=== PATIENT | male | born 1940 | race Hispanic/Latino ===

== ENCOUNTER 2024-01-11 13:12 | Inpatient (IN) | payer MEDICARE, SELFPAY ==
[2024-01-11] VITALS (7 sets, daily range): BP systolic 131–157; BP diastolic 66–94; PULSE 78–99; RESP 15–22; TEMP 36.4–36.6; O2SAT 100
--- NOTE | ~2024-01-11 | MR_ITS ---
EXAMINATION: MR MRCP wo/w con/w 3D wo ind DATE: 01/13/2024 08:42 INDICATION: Abnormal liver function tests. Cholelithiasis. TECHNIQUE: Magnetic resonance imaging (MRI) of the abdomen was performed without and with 12 mL Multi Lisa intravenous contrast. Sequences included coronal T2-weighted FS FSE, coronal T2-weighted FSE, a xial T1-weighted LAVA, coronal FS FIESTA, axial dual-echo T1-weighted SPGR, coronal lava-FLEX, sagitt al T2-weighted FSE, axial T2-weighted FSE, and axial DWI. Thick-slab T2-weighted FSE images were obta ined for magnetic resonance cholangiopancreatography (MRCP). Maximum intensity projection 3-D reconst ructions of the volumetric data were created by the technologist. Postcontrast sequences included cor onal LAVA-flex and time course of axial T1-weighted LAVA. COMPARISON: CT abdomen and pelvis 01/11/2024 FINDINGS: ABDOMEN MRI: There is diffuse hepatic steatosis. There are cysts in the liver measuring up to 4 mm. T here are gallstones in the gallbladder, which is normal in size. The spleen, pancreas, adrenal glands , and right kidney are normal. There is a 13 mm cyst in left kidney. There are no dilated loops of jim wel. There is diverticulosis of the colon without evidence of diverticulitis. There are no pathologic ally enlarged lymph nodes. There is no free intraperitoneal fluid. ABDOMEN MRCP: The common duct is normal and measures 5 mm. No choledocholithiasis. IMPRESSION: 1. Diffuse hepatic steatosis. 2. Cholelithiasis. No evidence of acute cholecystitis. Reviewed, dictated and finalized at location A.
--- NOTE | ~2024-01-11 | CT_ITS ---
EXAMINATION: CT brain wo con DATE: 01/11/2024 17:05 INDICATION: Altered mental status TECHNIQUE: Computed tomography (CT) of the head was performed without intravenous contrast. Sagittal and coronal reconstructions were performed. The mA was adjusted according to patient size. Iterative reconstruction technique was employed. The dose-length product was 680.23 mGy-cm. COMPARISON: None FINDINGS: No acute intracranial hemorrhage, acute infarction or abnormal extra axial fluid collection. Ventricl es are normal and symmetric. No mass/mass effect. Symmetric prominence of the sulci consistent with m ild to moderate age-appropriate diffuse cerebral volume loss. The orbits and mastoid air cells are no rmal. Mild mucosal thickening versus dependent layering mucus in the right sphenoid sinus. IMPRESSION: 1. Age-appropriate mild to moderate diffuse brain volume loss. No acute intracranial process. Reviewed, dictated and finalized at location A. IMPRESSION: 1. Age-appropriate mild to moderate diffuse brain volume loss. No acute intracr anial process.
--- NOTE | ~2024-01-11 | CT_ITS ---
EXAMINATION: CT abdomen pelvis w con DATE: 01/11/2024 17:04 INDICATION: Nausea, vomiting and diarrhea. Abnormal liver function tests and lipase levels. TECHNIQUE: Computed tomography (CT) of the abdomen and pelvis was performed with 100 mL Omnipaque-350 intravenous contrast. Automated exposure control and iterative reconstruction technique were employe d. The dose-length product was 680.23 mGy-cm. COMPARISON: None FINDINGS: Lung bases are clear. Heart size is normal. Aortic valve calcification. No pericardial effusion. Diff use hepatic steatosis. Several low-attenuation gallstones within the normal-appearing gallbladder. No intra or extrahepatic biliary ductal dilation. Spleen, pancreas, bilateral adrenal glands and right kidney are normal. 1.3 cm cyst at the upper pole of the left kidney. Extensive colonic diverticulosis with sigmoid and descending colon predominance without adjacent from trace stranding to suggest dive rticulitis. Bladder is normal. Prostatomegaly. Bilateral fat-containing direct inguinal hernias with additional small fat-containing indirect right inguinal hernia. Tiny fat-containing umbilical hernia. No free intraperitoneal gas or fluid. No pathologically enlarged abdominal or pelvic lymphadenopathy . Severe lumbar spondylosis. IMPRESSION: 1. No acute intra-abdominal/pelvic process. 2. Cholelithiasis. 3. Extensive diverticulosis. 4. Prostatomegaly. 5. Bilateral fat-containing inguinal hernias and tiny fat-containing umbilical hernia. Reviewed, dictated and finalized at location A.
--- NOTE | ~2024-01-11 | US_ITS ---
EXAMINATION: US abdomen limited DATE: 01/11/2024 17:40 INDICATION: Abnormal liver function tests, lipase and elevated bilirubin. TECHNIQUE: Multiple grayscale and Doppler ultrasound images of the abdomen were obtained. COMPARISON: CT dated 01/11/24 FINDINGS: The pancreatic head and body are normal in appearance. The pancreatic tail is not visualized. Liver has normal contour, with a smooth surface. There is increased parenchymal echogenicity and coarsened echotexture consistent with diffuse hepatic steatosis. No liver lesion identified. No intrahepatic b iliary duct dilation suspected. Portal venous flow was seen in the hepatopetal, normal direction and has normal Doppler waveform. The visualized proximal inferior vena cava is normal. There are few echo genic and shadowing gallstones filling the incompletely distended gallbladder. No evident gallbladder wall thickening. Common bile duct measures 304 mm in maximal diameter which is normal. Sonographic M urphy sign was reported as negative by the food service technician. Visualized portion of the right kidney demons trates normal contour and density with no hydronephrosis. IMPRESSION: 1. Cholelithiasis. 2. Diffuse hepatic steatosis. Reviewed, dictated and finalized at location A.
--- NOTE | ~2024-01-11 | XR_ITS ---
EXAMINATION: XR chest 2V DATE: 01/11/2024 16:44 INDICATION: Cough and chills TECHNIQUE: frontal and lateral views of the chest were obtained. COMPARISON: None FINDINGS: The lungs are clear with no focal airspace opacities, pulmonary edema, pleural effusion or pneumothor ax. The cardiomediastinal silhouette is normal. There are bridging osteophytes at multiple levels con sistent with diffuse idiopathic skeletal hyperostosis (DISH). IMPRESSION: 1. No acute cardiopulmonary disease. Reviewed, dictated and finalized at location A.
[2024-01-11 14:30] LABS: Basophils Absolute Auto 0.1 K/mm3 (0.0-0.1); Basophils Percent Auto 0.9 % (0.2-1.2); Eosinophils Absolute Auto 0.1 K/mm3 (0-0.3); Eosinophils Percent Auto 0.8 % (0-4.4); Hematocrit 40.7 % (42.0-52.0); Hemoglobin 14.6 g/dL (14.0-18.0); Immature Granulocyte Absolute 0.03 K/mm3 (0.00-0.031); Immature Granulocyte Percent A 0.5 % (0-0.5); Lymphocytes Absolute Auto 1.22 K/mm3 (0.9-3.2); Lymphocytes Percent Auto 18.7 % (18.3-44.2); Mean Corpuscular HGB Conc 35.9 g/dl (32-36); Mean Corpuscular Hemoglobin 35.4 pg (26-34); Mean Corpuscular Volume 98.8 fl (80-100); Monocytes Absolute Auto 0.5 K/mm3 (0.1-0.6); Monocytes Percent Auto 7.8 % (2.6-8.5); Neutrophils Absolute Auto 4.7 K/mm3 (1.3-6.7); Neutrophils Percent Auto 71.3 % (45.5-73.1); Platelet Count Result 155 k/mm3 (150-375); Red Blood Count 4.12 M/mm3 (4.6-6.20); Red Cell Distribution Width 13.6 % (11.5-14.5); White Blood Count 6.5 K/mm3 (4.5-10.0)
[2024-01-11 14:34] LABS: Alanine Aminotransferase 29 U/L (6-50); Albumin Level 3.5 g/dL (3.5-5.1); Alkaline Phosphatase 172 U/L (38-126); Anion Gap 8 mmol/L (4-12); Aspartate Amino Transferase 105 U/L (17-59); Bilirubin,Total 2.5 mg/dL (0.2-1.3); Blood Urea Nitrogen 15 mg/dL (9-20); Calcium 8.4 mg/dL (8.4-10.2); Carbon Dioxide 31 mmol/L (22-30); Chloride 91 mmol/L (98-107); Estimated CRCL calculation 28 ml/min; Estimated Glomerular Filt Rate 48; Glucose 117 mg/dL (65-110); Lipase 755 U/L (23-300); Potassium 2.7 mmol/L (3.4-5.0); Sodium 130 mmol/L (137-145)
[2024-01-11] MEDS: SODIUM CHLORIDE 0.9% IV 1,000 ML 999 ML IV CONT (14:43)
[2024-01-11 15:05] LABS: Influenza A QL RT-PCR Negative (Negative); Influenza B QL RT-PCR Negative (Negative); SARS-CoV-2 RNA PCR Negative (Negative)
[2024-01-11 15:07] LABS: Lactic Acid Reflex 1.3 mmol/L (0.7-2.0)
[2024-01-11 15:08] LABS: Magnesium 1.4 mg/dL (1.6-2.3)
[2024-01-11] MEDS: POTASSIUM CHLORIDE 20 MEQ ER TABLET 40 MEQ PO (16:17)
[2024-01-11] MEDS: MAGNESIUM SULF 2 GM/WATER 50ML 2 GM/50 ML BAG IVPB (16:19)
--- NOTE | 2024-01-11 16:19 | ED.NAVMDI ---
HPI - Nausea/Vomiting/Diarrhea General Chief complaint: Nausea/Vomiting/Diarrhea Stated complaint: altered mental Time Seen by Provider: 01/11/24 14:39 Source: patient and family Mode of arrival: ambulatory Limitations: no limitations and language barrier History of Present Illness HPI Narrative: Patient is an 83 y/o male who presents to the ED with c/o N/V/D. Patient is currently visiting family from [place]. Primarily Georgian speaking. Family at bedside assisted with translation. [employer] electrician telephone was offered and declined. They report patient has not felt well for the last 1 week. Has had nausea, vomiting, diarrhea, chills. Has also had a recent cough. Family denies known fevers. They state patient then became somewhat altered and disoriented today, which prompted their presentation. No known hx of dementia. Patient denies significant abdominal pain. Denies current nausea. Related Data Home Medications Medication Instructions Recorded Confirmed omeprazole 20 mg capsule,delayed 20 mg PO DAILY 01/11/24 01/11/24 release saw palm 160 mg-vit E 100 1 tablet PO DAILY 01/11/24 01/11/24 unit-selen 100 ikn-ibnl-zwnvvr-pygeum tablet ([facility]) tamsulosin 0.4 mg capsule 0.4 mg PO DAILY 01/11/24 01/11/24 Allergies Allergy/AdvReac Type Severity Reaction Status Date / Time Penicillins Allergy Hives Verified 01/11/24 21:01 Review of Systems Review of Systems: All systems reviewed & are unremarkable except as noted in HPI. All systems reviewed & are unremarkable except as noted in HPI and below PMFSH Past Medical History Medical History Alcoholism BPH (benign prostatic hyperplasia) GERD (gastroesophageal reflux disease) Family History Family History Mother Diabetes mellitus Sibling Diabetes mellitus Social History Social History Social History: The patient is from [place] and just came up to [place] to visit family at the end of December 2023. Smoking packs per day: 0.5 Smoking cigarettes per day: 10.0 Smoking status: Former smoker Alcohol intake: current Alcohol use details: The patient drinks at least a 12 pack of beer a day plus or minus some Tequila. Other substance usage details: alot of drinks per week; 12 beers per day and approx 1/2 bottle tequila Last use: 01/10/24 Do You Feel Safe in your Home?: Yes Lack of Transportation: No Lack of Food: Never True Current Housing: I Have Housing Concerned About Future Housing: No Difficulty Paying Gas/Electric Bills: No Difficulty Paying for Meds: No Currently Unemployed: No Education: Don't Know Difficulty w/ Childcare or Family Care: No Spiritual care concerns: No Exam Narrative: GENERAL: Elderly, well-nourished, non-toxic, in no acute distress. HEAD: Normocephalic, atraumatic. RESPIRATORY: Airway patent, respirations nonlabored. Clear to auscultation bilaterally, no rales, rhonchi, wheezing. No significant focal lung sounds. Frequent coughing on exam. CARDIOVASCULAR: Regular rate and rhythm without murmurs, rubs, or gallops. ABDOMINAL: Soft, no appreciable tenderness throughout abdomen, nondistended. Normoactive BS. MUSCULOSKELETAL: Moves all extremities. No gross deformities. SKIN: Warm, dry, very minimally jaundiced appearing. NEURO: A&O X3. Speech clear. Cranial nerves II-XII grossly intact. Steady gait. No ataxic movements. PSYCHIATRIC: Appropriate mood and affect. Normal interaction. Course Vital Signs Vital signs: Vital Signs Temperature 98 F 01/11/24 14:01 Pulse Rate 99 01/11/24 14:01 Respiratory Rate 15 01/11/24 14:01 Blood Pressure 131/87 01/11/24 14:01 Pulse Oximetry 100 01/11/24 14:01 Oxygen Delivery Room Air 01/11/24 14:01 Temperature 97.6 F 01/11/24 22:00 Pulse Rate 78
[2024-01-11] MEDS: SODIUM CHLORIDE 0.9% IV 1,000 ML 200 ML IV CONT (16:21)
[2024-01-11] MEDS: POTASSIUM CHLORIDE INJ 40 MEQ in SODIUM CHLORIDE 0.9% IV 500 ML 130 MEQ IVPB (16:22)
[2024-01-11 16:24] LABS: Bacteria Urine None Seen /hpf; RBC Urine 0-2 /hpf (0-2); Squamous Epithelial Cell Urine None Seen /hpf (Few); WBC Urine 0-5 /hpf (0-3)
[2024-01-11 16:26] LABS: Appearance Urine Sl Cloudy (Clear); Bilirubin Urine 1+ (Negative); Blood Urine Negative (Negative); Color Urine Yellow (Yellow); Glucose Urine UA Negative (Negative); Ketones Urine 1+ mg/dL (Negative); Nitrate Urine Negative (Negative); Protein Urine Trace mg/dL (Negative); Specific Grav Ur 1.015 (1.001-1.035)
[2024-01-11 16:27] LABS: Add Urine Microscopic? YES; Leukocyte Esterase Ur Trace LEU/UL (Negative)
--- NOTE | 2024-01-11 21:22 | PC.NURSE ---
Called report to MARY Newsome. Pt to be taken to floor after MARY Balbuena finishes admission assessment.
--- NOTE | 2024-01-11 21:25 | PM.IMHP ---
H&P: HPI History of Present Illness Date/Time: 01/11/24 21:25 Chief Complaint: Nausea and vomiting Narrative: 83-year-old Uzbek-speaking only male with past medical history of alcoholism, GERD and BPH who presented to the ER in the company of family due to nausea, vomiting and urinary frequency. Source of information comes from the patient and 2 daughters who are at bedside. The patient just came to the area from [place] about 5 days ago. The patient has evidently been having about 1 month of decreased appetite, intermittent cold chills and nausea. The patient had had multiple episodes of diarrhea and loose stools for the 1st couple of weeks of symptoms. He received antibiotic therapy while in [place] which helped reduce the frequency of his stools down from about 4 5 a day down to 1 or 2 a day. The patient denies any true vomiting but will feel extremely nauseated. He has never had an EGD. This is unclear if he has had a colonoscopy. He denies any hematochezia, melena or hematemesis. He has been having cold chills on and off for the last couple of weeks. He denies any known ill contacts. He denies drinking from any known contaminant he sources of water. His daughter's report that the patient drinks at least a 12 pack of beer a day and a half of bottle of Tequila a day. Patient has drank heavily for 8 years. He does get tremulous and irritable when he does not drink alcohol. His last alcoholic beverage was on the morning of the . The patient's daughters brought him in today because the patient seemed more confused than baseline. They report that he has been having difficulty with confusion on and off for at least 6 months to a year. He will forget where he is at. However he evidently fell prior to coming to the area and they were concerned that something may be going on in his head so they came in for evaluation. Patient has CT scan of the brain performed in the ER which was negative for acute process. also noted that the patient had bruising to his right foot and ankle but patient does not recall injuring himself. He denies any pain on palpation of the foot or ankle. He reports generalized abdominal discomfort on palpation in his abdomen appears somewhat distended. He reports that the abdominal distension is unchanged from baseline. He has had chronic urinary frequency and urgency for many years. He feels like he has difficulty emptying his bladder. He does have known BPH. The patient and family members refused movie shot camera operator services. The patient's daughters at bedside insistent on providing translation. Review of Systems Review of Systems: 12 systems were reviewed with pertinent positives and negatives per HPI. Except as documented in the HPI, all other systems were reviewed and are negative. [facility] Past Medical History Medical History (Updated 01/12/24 @ 03:49 by Ashley Juárez DO) Alcoholism BPH (benign prostatic hyperplasia) Depression GERD (gastroesophageal reflux disease) Surgical History Surgical History (Updated 01/12/24 @ 03:45 by Ashley Juárez DO) History of hernia repair History of total left knee replacement Status post cataract extraction of both eyes with insertion of intraocular lens Family History Family History Mother Diabetes mellitus Sibling Diabetes mellitus Social History Social History (Updated 01/12/24 @ 04:01 by Ashley Juárez DO) Social History: The patient is from [place] and just came up to [place] to visit family at the end of December 2023. He is a retired [employer]. He smoked about a pack of cigarettes per day for 30 years but quit 40 years ago. Surrogate decision makers: Mere Fleming (daughter) Code status: DNR/DNI (the patient does not have formal advanced directives in place but daughter's report that the patient has been stating for quite some time that he is ready to go if God is ready to take him.)
[2024-01-11] MEDS: LORazepam INJ (*CRX) 2 MG/ML VIAL 1 MG IV PUSH (22:51)
[2024-01-11] MEDS: SODIUM CHLORIDE 0.9% IV 1,000 ML 100 ML IV CONT (22:51)
[2024-01-11] MEDS: ONDANSETRON INJ 4 MG/2 ML VIAL IV PUSH (22:51)
[2024-01-11] MEDS: THIAMINE HCL 200 MG/2 ML VIAL 100 MG IV PUSH (22:52)
[2024-01-11] MEDS: MORPHINE SULFATE (*CRX) 4 MG/ML INJ IV PUSH (23:00)
[2024-01-12] VITALS (9 sets, daily range): BP systolic 114–133; BP diastolic 64–72; PULSE 62–101; RESP 16–17; TEMP 36.2–36.6; O2SAT 97–100
--- NOTE | 2024-01-12 | ECHO_ITS ---
Patient Info Name: Curt Canada Age: 83 years : 1940 Gender: Male Ht: 63 in Wt: 132 lbs BSA: 1.64 m2 HR: 77 bpm BP: 128 / 64 mmHg Heart Rhythm: Sinus Rhythm Technical Quality: Fair Exam Date: 01/12/2024 11:26 AM Exam Location: Echo Lab Patient Status: Inpatient Admit Date: 01/11/2024 Staff Ordering Physician: Nurys Nolen [facility] Aides Teacher: Lisa Redmond RDCS Attending Provider: Nurys Nolen Referring Physician: Tamanna ALMENDAREZ; Exam Type: CA echo dop color flow w con Study Info Indications - new murmur Complete two-dimensional, color flow and Doppler transthoracic echocardiogram is performed with contrast to opacify the left ventricle and to improve the deliniation of the left ventricle endocardial borders. Contrast/Agitated Saline Contrast/Ag. Saline: Definity Amount: 2.00 ml Administered By: Lisa Redmond RDCS Existing IV Access: Yes IV Access Condition: patent with no signs of infiltration Summary 1. Left ventricular chamber dimension is normal. 2. Left ventricular systolic function is normal, estimated at 60-65%. 3. The left ventricular diastolic function is grade I diastolic dysfunction. 4. There is moderate aortic valve stenosis with a peak velocity of 239.35 cm/s, mean gradient of 11 mmHg, and aortic valve area of 1.03 cm2. Left Ventricle Left ventricular chamber dimension is normal. Left ventricular systolic function is normal, estimated at 60-65%. There is no increased left ventricular wall thickness. Left ventricular septal wall motion is normal. The left ventricular diastolic function is grade I diastolic dysfunction. Right Ventricle Right ventricular chamber dimension is normal. Right ventricular systolic function is normal. Left Atria Left atrial chamber dimension is mildly enlarged. Right Atria Right atrial chamber dimension is normal. Aortic Valve The aortic valve is trileaflet. There is moderate aortic valve sclerosis. There is no aortic valve regurgitation. There is moderate aortic valve stenosis with a peak velocity of 239.35 cm/s, mean gradient of 11 mmHg, and aortic valve area of 1.03 cm2. Pulmonic Valve The pulmonic valve is normal. There is no pulmonic valve stenosis. There is no pulmonic regurgitation. Mitral Valve The mitral valve has normal leaflets. There is no mitral valve stenosis. There is no mitral valve regurgitation. Tricuspid Valve The tricuspid valve leaflets are normal. There is no significant tricuspid valve stenosis. There is no tricuspid valve regurgitation. No pulmonary hypertension, estimated pulmonary arterial systolic pressure is 32 mmHg. Pericardium/Pleural The pericardium appears normal. There is no pericardial effusion. Inferior Vena Cava Normal inferior vena cava with >50% collapse upon inspiration consistent with Empty right atrial pressure, 10 mmHg. Aorta The aortic root size at the sinus of Valsalva is normal. The prox ascending aorta size is normal. Left Ventricular Outflow Tract Name Value Normal LVOT 2D LVOT Diameter 1.96 cm LVOT Doppler LVOT Peak Gradient 3 mmHg LVOT Mean Gradient
[2024-01-12 00:11] LABS: Ethanol < 10 mg/dL (<10)
[2024-01-12 00:12] LABS: Anion Gap 8 mmol/L (4-12); Blood Urea Nitrogen 11 mg/dL (9-20); Calcium 7.7 mg/dL (8.4-10.2); Carbon Dioxide 27 mmol/L (22-30); Chloride 98 mmol/L (98-107); Estimated CRCL calculation 35 ml/min; Estimated Glomerular Filt Rate > 60; Glucose 85 mg/dL (65-110); Magnesium 1.7 mg/dL (1.6-2.3); Potassium 3.1 mmol/L (3.4-5.0); Sodium 133 mmol/L (137-145)
[2024-01-12] MEDS: MAGNESIUM SULF 2 GM/WATER 50ML 2 GM/50 ML BAG IVPB (04:11)
[2024-01-12] MEDS: POTASSIUM CHLORIDE 20 MEQ ER TABLET 40 MEQ PO ×2 (04:11→08:10)
[2024-01-12] MEDS: LORazepam INJ (*CRX) 2 MG/ML VIAL IV PUSH (04:11)
[2024-01-12 05:53] LABS: Hematocrit 33.3 % (42.0-52.0); Hemoglobin 11.6 g/dL (14.0-18.0); Mean Corpuscular HGB Conc 34.8 g/dl (32-36); Mean Corpuscular Hemoglobin 35.3 pg (26-34); Mean Corpuscular Volume 101.2 fl (80-100); Platelet Count Result 132 k/mm3 (150-375); Red Blood Count 3.29 M/mm3 (4.6-6.20); Red Cell Distribution Width 13.9 % (11.5-14.5); White Blood Count 4.3 K/mm3 (4.5-10.0)
[2024-01-12 06:00] LABS: Alanine Aminotransferase 21 U/L (6-50); Albumin Level 2.9 g/dL (3.5-5.1); Alkaline Phosphatase 138 U/L (38-126); Anion Gap 8 mmol/L (4-12); Aspartate Amino Transferase 66 U/L (17-59); Bilirubin,Total 1.7 mg/dL (0.2-1.3); Blood Urea Nitrogen 10 mg/dL (9-20); Calcium 7.2 mg/dL (8.4-10.2); Carbon Dioxide 27 mmol/L (22-30); Chloride 96 mmol/L (98-107); Estimated CRCL calculation 38 ml/min; Estimated Glomerular Filt Rate > 60; Glucose 74 mg/dL (65-110); Lipase 364 U/L (23-300); Potassium 3.1 mmol/L (3.4-5.0); Sodium 131 mmol/L (137-145)
[2024-01-12 06:03] LABS: INR 1.1; Prothrombin Time 14.6 Seconds (11.1-14.7)
[2024-01-12 07:12] LABS: Vitamin B12 > 1000.0 pg/mL (239-931)
[2024-01-12 07:49] LABS: Glucose Point of Care 71 mg/dl (65-105)
[2024-01-12] MEDS: THIAMINE HCL 200 MG/2 ML VIAL 100 MG IV PUSH (08:05)
[2024-01-12] MEDS: PANTOPRAZOLE SODIUM IV 40 MG VIAL IV PUSH ×2 (08:08→21:05)
[2024-01-12] MEDS: ENOXAPARIN 40 MG/0.4 ML SYRINGE SUB-Q (08:09)
[2024-01-12] MEDS: TAMSULOSIN HCL 0.4 MG CAPSULE PO (08:10)
[2024-01-12] MEDS: SODIUM CHLORIDE 0.9% IV 1,000 ML 100 ML IV CONT ×2 (08:30→21:06)
--- NOTE | 2024-01-12 10:47 | P.PNIM_ITS ---
Progress Note: A&P Assessment and Plan (1) Alcoholism: Code(s): F10.20 - Alcohol dependence, uncomplicated Status: Chronic Assessment and Plan: * reported use of at least a 12 pack of beer daily and 1/2 bottle of hard liquor daily for the past eight years. * Continue CIWA evaluation and management as directed. * Continue Thiamine, Protonix (2) Hyperbilirubinemia: Code(s): E80.6 - Other disorders of bilirubin metabolism Status: Acute Assessment and Plan: * Most likely secondary to complication of ETOH abuse and fatty liver. * However, given elevation, Choledocholithiasis must be also ruled out. * Awaiting MRCP that will be done tomorrow. * GI consulted and awaiting recommendations. * Continue Protonix. * Continue to trend and monitor liver function. (3) Cholelithiasis: Qualifiers: Biliary obstruction: without biliary obstruction Cholecystitis presence: without cholecystitis Cholelithiasis location: gallbladder Qualified Code(s): K80.20 - Calculus of gallbladder without cholecystitis without obstruction Code(s): K80.20 - Calculus of gallbladder without cholecystitis without obstruction Status: Acute Assessment and Plan: * See Plan for #2. (4) Elevated lipase: Code(s): R74.8 - Abnormal levels of other serum enzymes Assessment and Plan: * Lipase decreased from 755-->364. * Asymptomatic. * Continue to monitor. (5) Hypokalemia: Code(s): E87.6 - Hypokalemia Status: Acute Assessment and Plan: * Pts potassium increased from 2.7-->3.1. * Additional 40 mEq po given to further increase the potassium level at this time. * Continue to trend and monitor. (6) Hypomagnesemia: Code(s): E83.42 - Hypomagnesemia Status: Resolved Assessment and Plan: * Resolved after administration of supplemental magnesium. * Current Magnesium is 1.7. (7) Acute kidney injury: Code(s): N17.9 - Acute kidney failure, unspecified Status: Resolved Assessment and Plan: * Creatinine/BUN now 1.0/10 respectively. * Resolved. (8) Hyponatremia: Code(s): E87.1 - Hypo-osmolality and hyponatremia Status: Acute Assessment and Plan: * Remains low at 131. * Continue NS at 100 ml/hr * Suspect secondary to chronic alcohol abuse. * Continue to monitor and trend. * Check Urine sodium and Urine osmolality. (9) GERD (gastroesophageal reflux disease): Qualifiers: Esophagitis presence: esophagitis presence not specified Qualified Code(s): K21.9 - Gastro-esophageal reflux disease without esophagitis Code(s): K21.9 - Gastro-esophageal reflux disease without esophagitis Status: Chronic Assessment and Plan: * Continue PPI therapy. (10) BPH (benign prostatic hyperplasia): Qualifiers: Lower urinary tract symptom presence: symptoms present Lower urinary tract symptom detail: urinary frequency Qualified Code(s): N40.1 - Benign prostatic hyperplasia with lower urinary tract symptoms; R35.0 - Frequency of micturition Code(s): N40.0 - Benign prostatic hyperplasia without lower urinary tract symptoms Status: Chronic Assessment and Plan: * Continue Flomax. (11) Dehydration: Code(s): E86.0 - Dehydration Status: Acute Assessment and Plan: * Improving. * Continue NS at 100 ml/hr (12) Memory changes: Code(s): R41.3 - Other amnesia Status: Acute Assessment and Plan: * Suspect chronic in nature. * Nandini
--- NOTE | 2024-01-12 10:47 | PM.IMPN ---
Progress Note: A&P Assessment and Plan (1) Alcoholism: Code(s): F10.20 - Alcohol dependence, uncomplicated Status: Chronic Assessment and Plan: reported use of at least a 12 pack of beer daily and 1/2 bottle of hard liquor daily for the past eight years. Continue CIWA evaluation and management as directed. Continue Thiamine, Protonix (2) Hyperbilirubinemia: Code(s): E80.6 - Other disorders of bilirubin metabolism Status: Acute Assessment and Plan: Most likely secondary to complication of ETOH abuse and fatty liver. However, given elevation, Choledocholithiasis must be also ruled out. Awaiting MRCP that will be done tomorrow. GI consulted and awaiting recommendations. Continue Protonix. Continue to trend and monitor liver function. (3) Cholelithiasis: Qualifiers: Biliary obstruction: without biliary obstruction Cholecystitis presence: without cholecystitis Cholelithiasis location: gallbladder Qualified Code(s): K80.20 - Calculus of gallbladder without cholecystitis without obstruction Code(s): K80.20 - Calculus of gallbladder without cholecystitis without obstruction Status: Acute Assessment and Plan: See Plan for #2. (4) Elevated lipase: Code(s): R74.8 - Abnormal levels of other serum enzymes Assessment and Plan: Lipase decreased from 755-->364. Asymptomatic. Continue to monitor. (5) Hypokalemia: Code(s): E87.6 - Hypokalemia Status: Acute Assessment and Plan: Pts potassium increased from 2.7-->3.1. Additional 40 mEq po given to further increase the potassium level at this time. Continue to trend and monitor. (6) Hypomagnesemia: Code(s): E83.42 - Hypomagnesemia Status: Resolved Assessment and Plan: Resolved after administration of supplemental magnesium. Current Magnesium is 1.7. (7) Acute kidney injury: Code(s): N17.9 - Acute kidney failure, unspecified Status: Resolved Assessment and Plan: Creatinine/BUN now 1.0/10 respectively. Resolved. (8) Hyponatremia: Code(s): E87.1 - Hypo-osmolality and hyponatremia Status: Acute Assessment and Plan: Remains low at 131. Continue NS at 100 ml/hr Suspect secondary to chronic alcohol abuse. Continue to monitor and trend. Check Urine sodium and Urine osmolality. (9) GERD (gastroesophageal reflux disease): Qualifiers: Esophagitis presence: esophagitis presence not specified Qualified Code(s): K21.9 - Gastro-esophageal reflux disease without esophagitis Code(s): K21.9 - Gastro-esophageal reflux disease without esophagitis Status: Chronic Assessment and Plan: Continue PPI therapy. (10) BPH (benign prostatic hyperplasia): Qualifiers: Lower urinary tract symptom presence: symptoms present Lower urinary tract symptom detail: urinary frequency Qualified Code(s): N40.1 - Benign prostatic hyperplasia with lower urinary tract symptoms; R35.0 - Frequency of micturition Code(s): N40.0 - Benign prostatic hyperplasia without lower urinary tract symptoms Status: Chronic Assessment and Plan: Continue Flomax. (11) Dehydration: Code(s): E86.0 - Dehydration Status: Acute Assessment and Plan: Improving. Continue NS at 100 ml/hr (12) Memory changes: Code(s): R41.3 - Other amnesia Status: Acute Assessment and Plan: Suspect chronic in nature. Etiology Dementia vs. ETOH encephalopathy vs. Forgetfullness. Monitor. Time Spent With Patient Time with patient: 25 - 35 minutes Subjective Date/time seen: 01/12/24 0910 Interval history: From H&P: 83-year-old [place]ese-speaking only male with past medical history of alcoholism, GERD and BPH who presented to the ER in the company of family due to nausea, vomiting and urinary frequency. Source of information comes from the patient and 2 daughters
[2024-01-12] MEDS: PERFLUTREN LIPID MICROSPHERES 1.5 ML VIAL DILUTED TO 10 ML TOTAL VOLUME IV PUSH (11:50)
[2024-01-12 12:07] LABS: Glucose Point of Care 84 mg/dl (65-105)
--- NOTE | 2024-01-12 12:11 | IVDEFINITY ---
Prior to administration of IV Definity the patient was educated on the risks and benefits of the imaging enhancing agent including potential adverse side effects. The patient verbalized understanding. Allergies were verified. No exclusion criteria were identified and at least one of the following inclusion criteria were met: 1) physician request, 2) patient technically difficult to image (per the [place] [employer] guidelines of two or more segments not discernable within the apical view), or 3) questionable left ventricular function. ?
[2024-01-12 14:29] LABS: Sodium Urine Random 123 meq/L
--- NOTE | 2024-01-12 14:50 | WPDGICN ---
Assessment and Plan Assessment and plan (1) Alcoholic pancreatitis: Code(s): K85.20 - Alcohol induced acute pancreatitis without necrosis or infection Status: Acute Assessment and Plan: probably cause of presentation, this will explain both pancreatitis, elevated liver enzymes and fatty changes of liver liquid diet as tolerated supportive care (2) Acute kidney injury: Code(s): N17.9 - Acute kidney failure, unspecified Status: Resolved Assessment and Plan: creat 1.4, down 1 and improved after fluids (3) Dehydration: Code(s): E86.0 - Dehydration Status: Acute Assessment and Plan: treated (4) Upper abdominal pain: Code(s): R10.10 - Upper abdominal pain, unspecified Status: Acute Assessment and Plan: better (5) Cholelithiasis: Qualifiers: Biliary obstruction: without biliary obstruction Cholecystitis presence: without cholecystitis Cholelithiasis location: gallbladder Qualified Code(s): K80.20 - Calculus of gallbladder without cholecystitis without obstruction Code(s): K80.20 - Calculus of gallbladder without cholecystitis without obstruction Status: Acute (6) Elevated liver enzymes: Code(s): R74.8 - Abnormal levels of other serum enzymes Status: Acute Assessment and Plan: probably alcohol related monitor thiamine, nutrition support, will get hepatitis panel GI Consult Note Consult date/time: 01/12/24 14:50 Reason for consult: pancreatitis, abdominal pain, elevated liver enzymes HPI: Curt Canada is a 83 year old male originally from [place] who came to visit family just few days ago (most of his adult children live here and he has been here multiple times but he mostly speaks [place]). He has history of alcoholism (used to drink at least 4-5 beers since his 20's, GERD and BPH. He came to ER with progressive nausea, vomiting and urinary frequency. He says that has been feeling sick for almost 1 month with decreased appetite and nausea, also loose stools. He has never had an EGD. This is unclear if he has had a colonoscopy. CT scan and ultrasound showed cholelithiasis, fatty liver, normal bile duct. Blood work with bili 2.5, ast 100, lipase 700. Denies history of pancreatitis. Review of Systems Constitutional: Constitutional: Reports chills Eyes: Eyes: Denies blurry vision ENT: Reports Normal hearing present Cardiovascular: Cardiovascular: Denies chest pain Respiratory: Respiratory: Denies cough Gastrointestinal: Gastrointestinal: Reports abdominal pain, Reports diarrhea and Reports nausea Genitourinary: Genitourinary: Reports urinary frequency Musculoskeletal: Musculoskeletal: Denies neck pain Integumentary/Breasts: Skin/Breast: Denies rash Neurologic: Denies Abnormal speech present Psychiatric: Psychiatric: Denies behavioral changes [facility] Past Medical History Medical History (Updated 01/12/24 @ 14:55 by Adis Bernal MD) Alcoholic pancreatitis Alcoholism BPH (benign prostatic hyperplasia) Depression Elevated liver enzymes GERD (gastroesophageal reflux disease) Upper abdominal pain Surgical History Surgical History (Updated 01/12/24 @ 03:45 by Ashley Juárez DO) History of hernia repair History of total left knee replacement Status post cataract extraction of both eyes with insertion of intraocular lens Family History Family History Mother Diabetes mellitus Sibling Diabetes mellitus Social History Social History (Updated 01/12/24 @ 04:01 by Ashley Juárez DO) Social History: The patient is from [place] and just came up to [place] to visit family at the end of December 2023. He is a retired [employer]. He smoked about a pack of cigarettes per day for 30 years but quit 40 years ago. Surrogate decision makers: Mere Fleming (daughter) Code status: DNR/DNI (the patient does not h
[2024-01-12 16:16] LABS: Hepatitis B Surface Antigen Negative (Negative)
[2024-01-12 16:22] LABS: HAV RESULT Negative (Negative); Hepatitis B Core IgM Result Negative (Negative)
[2024-01-12 16:33] LABS: Hepatitis C Virus Antibody Negative (Negative)
[2024-01-12 16:41] LABS: Glucose Point of Care 86 mg/dl (65-105)
--- NOTE | 2024-01-12 18:48 | PC.NURSE ---
This nurse notified the hospitalist about pt only giving small stool sample for cdiff and culture. The lab called and stated that sample can be collected for Cdiff only at this time.
[2024-01-12 19:19] LABS: Toxigenic C. Diff NEGATIVE (NEGATIVE)
[2024-01-12 20:09] LABS: Glucose Point of Care 168 mg/dl (65-105)
[2024-01-12 23:39] LABS: Glucose Point of Care 103 mg/dl (65-105)
[2024-01-13] VITALS (8 sets, daily range): BP systolic 142–154; BP diastolic 63–76; PULSE 73–96; RESP 16–18; TEMP 36.2–36.9; O2SAT 100
[2024-01-13 06:00] LABS: Glucose Point of Care 76 mg/dl (65-105)
[2024-01-13] MEDS: SODIUM CHLORIDE 0.9% IV 1,000 ML 100 ML IV CONT ×2 (06:44→17:15)
[2024-01-13 06:54] LABS: Eosinophils Absolute Auto 0.1 K/mm3 (0-0.3); Eosinophils Percent Auto 2.8 % (0-4.4); Hematocrit 35.8 % (42.0-52.0); Hemoglobin 12.5 g/dL (14.0-18.0); Immature Granulocyte Absolute 0.02 K/mm3 (0.00-0.031); Immature Granulocyte Percent A 0.5 % (0-0.5); Lymphocytes Absolute Auto 1.27 K/mm3 (0.9-3.2); Lymphocytes Percent Auto 32.6 % (18.3-44.2); Mean Corpuscular HGB Conc 34.9 g/dl (32-36); Mean Corpuscular Volume 103.2 fl (80-100); Mean Platelet Volume 9.3 fl (7.4-10.4); Monocytes Absolute Auto 0.4 K/mm3 (0.1-0.6); Monocytes Percent Auto 11.1 % (2.6-8.5); Platelet Count Result 108 k/mm3 (150-375); Red Blood Count 3.47 M/mm3 (4.6-6.20); Red Cell Distribution Width 13.9 % (11.5-14.5); White Blood Count 3.9 K/mm3 (4.5-10.0)
[2024-01-13 07:04] LABS: Alanine Aminotransferase 20 U/L (6-50); Alkaline Phosphatase 118 U/L (38-126); Anion Gap 6 mmol/L (4-12); Aspartate Amino Transferase 55 U/L (17-59); Bilirubin,Total 1.8 mg/dL (0.2-1.3); Blood Urea Nitrogen 6 mg/dL (9-20); Calcium 7.5 mg/dL (8.4-10.2); Carbon Dioxide 29 mmol/L (22-30); Chloride 96 mmol/L (98-107); Estimated CRCL calculation 42 ml/min; Estimated Glomerular Filt Rate > 60; Glucose 91 mg/dL (65-110); Potassium 3.6 mmol/L (3.4-5.0); Sodium 131 mmol/L (137-145)
[2024-01-13] MEDS: DEXTROSE 50% 25 GM/50 ML SYRINGE IV PUSH (07:06)
[2024-01-13] MEDS: THIAMINE HCL 200 MG/2 ML VIAL 100 MG IV PUSH (07:50)
[2024-01-13] MEDS: TAMSULOSIN HCL 0.4 MG CAPSULE PO (07:50)
[2024-01-13] MEDS: PANTOPRAZOLE SODIUM IV 40 MG VIAL IV PUSH ×2 (07:51→21:44)
[2024-01-13 12:20] LABS: Glucose Point of Care 169 mg/dl (65-105)
--- NOTE | 2024-01-13 14:52 | P.PNIM_ITS ---
Progress Note: A&P Assessment and Plan (1) Alcoholism: Code(s): F10.20 - Alcohol dependence, uncomplicated Status: Chronic Assessment and Plan: * reported use of at least a 12 pack of beer daily and 1/2 bottle of hard liquor daily for the past eight years. * Continue CIWA evaluation and management as directed. * Continue Thiamine, Protonix 01/13/24: * No s/s of withdrawal present. * Continue CIWA. * Last drink now 3 days ago. * Continue Thiamine, folic acid and protonix. (2) Hyperbilirubinemia: Code(s): E80.6 - Other disorders of bilirubin metabolism Status: Acute Assessment and Plan: * Most likely secondary to complication of ETOH abuse and fatty liver. * However, given elevation, Choledocholithiasis must be also ruled out. * Awaiting MRCP that will be done tomorrow. * GI consulted and awaiting recommendations. * Continue Protonix. * Continue to trend and monitor liver function. 01/13/24: * Remains elevated at 1.8 * Awaiting results of MRCP * Dr. Anguiano has consulted * Obtain Hepatitis panel (3) Cholelithiasis: Qualifiers: Biliary obstruction: without biliary obstruction Cholecystitis presence: without cholecystitis Cholelithiasis location: gallbladder Qualified Code(s): K80.20 - Calculus of gallbladder without cholecystitis without obstruction Code(s): K80.20 - Calculus of gallbladder without cholecystitis without obstruction Status: Acute Assessment and Plan: * See Plan for #2. (4) Elevated lipase: Code(s): R74.8 - Abnormal levels of other serum enzymes Assessment and Plan: * Lipase decreased from 755-->364. * Asymptomatic. * Continue to monitor. 01/13/24: * Trend in AM. * Not symptomatic. (5) Hypokalemia: Code(s): E87.6 - Hypokalemia Status: Resolved Assessment and Plan: * Pts potassium increased from 2.7-->3.1. * Additional 40 mEq po given to further increase the potassium level at this time. * Continue to trend and monitor. 01/13/24: * Resolved at this time at 3.6. (6) Hypomagnesemia: Code(s): E83.42 - Hypomagnesemia Status: Resolved Assessment and Plan: * Resolved after administration of supplemental magnesium. * Current Magnesium is 1.7. (7) Acute kidney injury: Code(s): N17.9 - Acute kidney failure, unspecified Status: Resolved Assessment and Plan: * Creatinine/BUN now 1.0/10 respectively. * Resolved. (8) Hyponatremia: Code(s): E87.1 - Hypo-osmolality and hyponatremia Status: Acute Assessment and Plan: * Remains low at 131. * Continue NS at 100 ml/hr * Suspect secondary to chronic alcohol abuse. * Continue to monitor and trend. * Check Urine sodium and Urine osmolality. 01/13/24: * Low but stable at 131 * Likely Beer Potomania secondary to his chronic beer use. * Urine sodium is 123, lowering suspicion for SIADH * Urine osmolality is pending. * Continue to monitor and trend. (9) GERD (gastroesophageal reflux disease): Qualifiers: Esophagitis presence: esophagitis presence not specified Qualified Code(s): K21.9 - Gastro-esophageal reflux disease without esophagitis Code(s): K21.9 - Gastro-esophageal reflux disease without esophagitis Status: Chronic Assessment and Plan: * Continue PPI therapy. (10) BPH (benign prostatic hyperplasia): Qualifiers: Lower urinary tract symptom presence: symptoms present Lower urinary tract symptom detail: urina
--- NOTE | 2024-01-13 14:52 | PM.IMPN ---
Progress Note: A&P Assessment and Plan (1) Alcoholism: Code(s): F10.20 - Alcohol dependence, uncomplicated Status: Chronic Assessment and Plan: reported use of at least a 12 pack of beer daily and 1/2 bottle of hard liquor daily for the past eight years. Continue CIWA evaluation and management as directed. Continue Thiamine, Protonix 01/13/24: No s/s of withdrawal present. Continue CIWA. Last drink now 3 days ago. Continue Thiamine, folic acid and protonix. (2) Hyperbilirubinemia: Code(s): E80.6 - Other disorders of bilirubin metabolism Status: Acute Assessment and Plan: Most likely secondary to complication of ETOH abuse and fatty liver. However, given elevation, Choledocholithiasis must be also ruled out. Awaiting MRCP that will be done tomorrow. GI consulted and awaiting recommendations. Continue Protonix. Continue to trend and monitor liver function. 01/13/24: Remains elevated at 1.8 Awaiting results of MRCP Dr. Anguiano has consulted Obtain Hepatitis panel (3) Cholelithiasis: Qualifiers: Biliary obstruction: without biliary obstruction Cholecystitis presence: without cholecystitis Cholelithiasis location: gallbladder Qualified Code(s): K80.20 - Calculus of gallbladder without cholecystitis without obstruction Code(s): K80.20 - Calculus of gallbladder without cholecystitis without obstruction Status: Acute Assessment and Plan: See Plan for #2. (4) Elevated lipase: Code(s): R74.8 - Abnormal levels of other serum enzymes Assessment and Plan: Lipase decreased from 755-->364. Asymptomatic. Continue to monitor. 01/13/24: Trend in AM. Not symptomatic. (5) Hypokalemia: Code(s): E87.6 - Hypokalemia Status: Resolved Assessment and Plan: Pts potassium increased from 2.7-->3.1. Additional 40 mEq po given to further increase the potassium level at this time. Continue to trend and monitor. 01/13/24: Resolved at this time at 3.6. (6) Hypomagnesemia: Code(s): E83.42 - Hypomagnesemia Status: Resolved Assessment and Plan: Resolved after administration of supplemental magnesium. Current Magnesium is 1.7. (7) Acute kidney injury: Code(s): N17.9 - Acute kidney failure, unspecified Status: Resolved Assessment and Plan: Creatinine/BUN now 1.0/10 respectively. Resolved. (8) Hyponatremia: Code(s): E87.1 - Hypo-osmolality and hyponatremia Status: Acute Assessment and Plan: Remains low at 131. Continue NS at 100 ml/hr Suspect secondary to chronic alcohol abuse. Continue to monitor and trend. Check Urine sodium and Urine osmolality. 01/13/24: Low but stable at 131 Likely Beer Potomania secondary to his chronic beer use. Urine sodium is 123, lowering suspicion for SIADH Urine osmolality is pending. Continue to monitor and trend. (9) GERD (gastroesophageal reflux disease): Qualifiers: Esophagitis presence: esophagitis presence not specified Qualified Code(s): K21.9 - Gastro-esophageal reflux disease without esophagitis Code(s): K21.9 - Gastro-esophageal reflux disease without esophagitis Status: Chronic Assessment and Plan: Continue PPI therapy. (10) BPH (benign prostatic hyperplasia): Qualifiers: Lower urinary tract symptom presence: symptoms present Lower urinary tract symptom detail: urinary frequency Qualified Code(s): N40.1 - Benign prostatic hyperplasia with lower urinary tract symptoms; R35.0 - Frequency of micturition Code(s): N40.0 - Benign prostatic hyperplasia without lower urinary tract symptoms Status: Chronic Assessment and Plan: Continue Flomax. (11) Dehydration: Code(s): E86.0 - Dehydration Status: Acute Assessment and Plan: Improving. Continue NS at 100 ml/hr (12) Memory changes: Code(s): R41.3 - Other
[2024-01-13] MEDS: FOLIC ACID 1 MG TABLET PO (15:50)
--- NOTE | 2024-01-13 16:50 | WPDGIPROGNO ---
Progress Note: A&P Assessment and Plan (1) Alcoholic pancreatitis: Code(s): K85.20 - Alcohol induced acute pancreatitis without necrosis or infection Status: Acute Assessment and Plan: clinically much better, no more pain and hungry will advance diet mrcp reviewed, cholelithiasis and fatty liver, normal bile duct, no need of scope (2) Elevated liver enzymes: Code(s): R74.8 - Abnormal levels of other serum enzymes Status: Acute Assessment and Plan: trending down (3) Upper abdominal pain: Code(s): R10.10 - Upper abdominal pain, unspecified Status: Acute Assessment and Plan: resolved (4) Cholelithiasis: Qualifiers: Biliary obstruction: without biliary obstruction Cholecystitis presence: without cholecystitis Cholelithiasis location: gallbladder Qualified Code(s): K80.20 - Calculus of gallbladder without cholecystitis without obstruction Code(s): K80.20 - Calculus of gallbladder without cholecystitis without obstruction Status: Acute Subjective Date/time seen: 01/13/24 16:50 Interval history: no more pain or nausea, he is doing much better and is quite hungry Review of Systems Review of Systems: All systems reviewed & are unremarkable except as noted in HPI and below Exam Const: General: comfortable and no acute distress HENMT: Face/Nose/Sinus: Normal nares present Eyes: General: appearance normal, both eyes and all related structures Neck: Neck: supple Resp: Auscultation: clear to auscultation bilaterally Cardio: Rate: regular rate Rhythm: regular rhythm GI: Inspection: non-distended GI Palp: Yes Soft to palpation and No Tenderness to palpation present (GI) Auscultation: normal bowel sounds Skin: General skin exam: normal color Neuro: Speech: normal speech Motor exam (neuro): 5/5 motor strength present throughout Extrem: General: normal to inspection Psych: Mental Status: mental status grossly normal Objective Data Vital Signs Vital Signs: Vital Signs - 24 hr 01/12/24 20:29 01/12/24 20:00 01/12/24 20:00 Temperature 97.4 F L Pulse Rate 62 86 Pulse Rate [Right Radial] 86 Respiratory Rate 16 Blood Pressure 119/72 Pulse Oximetry 100 01/13/24 00:00 01/13/24 00:00 01/13/24 04:00 Temperature Pulse Rate 77 75 Pulse Rate [Right Radial] 77 Respiratory Rate Blood Pressure Pulse Oximetry 01/13/24 06:00 01/13/24 12:00 01/13/24 13:43 Temperature 97.2 F L 98 F Pulse Rate 74 87 96 Pulse Rate [Right Radial] Respiratory Rate 16 16 Blood Pressure 142/65 H 154/63 H Pulse Oximetry 100 100 01/13/24 16:00 Temperature Pulse Rate 81 Pulse Rate [Right Radial] Respiratory Rate Blood Pressure Pulse Oximetry Intake/Output Intake/Output: Intake & Output 01/10/24 01/11/24 01/12/24 01/13/24 23:59 23:59 23:59 23:59 Intake Total 2570 3809 2043.3 Output Total 750 465 Balance 2570 3059 1578.3 Meds/Results Medications: Active Medications Generic Name Dose Route Start Last Admin Trade Name Freq PRN Reason Stop Dose Admin Calcium Carbonate 500 mg 01/13/24 17:00 Calcium/Vitamin D 500 Mg/5 Mcg (200 I.U.) Tablet PO BIDWM PASCUAL Dextrose 12.5 gm 01/11/24 20:41 01/13/24 07:06 Dextrose 50% 25 Gm/50 Ml Syringe IV PUSH 12.5 gm PRN PRN Administration Hypoglycemia Protocol Enoxaparin Sodium 40 mg 01/12/24 09:00 01/13/24 07:14 Enoxaparin 40 Mg/0.4 Ml Syringe SUB-Q Not Given DAILY PASCUAL Folic Acid 1 mg 01/13/24 09:00 01/13/24 15:50 Folic Acid 1 Mg Tablet PO 1 mg DAILY PASCUAL Administration Glucagon 1 mg 01/11/24 20:41 Glucagon For Inj 1 Mg Vial IM PRN PRN Hypoglycemia Protocol Glucose 15 gm 01/11/24 20:41 Glucose Oral Gel 15 Gm Of Glucse In 37.5 Gm Tube PO PRN PRN Hypoglycemia Protocol Guaifenesin/Dextromethorphan 10 ml 01/12/24 10:53 Guaifenesin/Dextromethorpha
[2024-01-13] MEDS: CALCIUM/VITAMIN D 500 MG/5 MCG (200 I.U.) TABLET PO (17:14)
[2024-01-13 17:22] LABS: Hepatitis B Surface Antigen Negative (Negative)
[2024-01-13 17:29] LABS: HAV RESULT Negative (Negative); Hepatitis B Core IgM Result Negative (Negative)
[2024-01-13 17:35] LABS: Glucose Point of Care 165 mg/dl (65-105)
[2024-01-13 17:40] LABS: Hepatitis C Virus Antibody Negative (Negative)
--- NOTE | 2024-01-13 18:14 | PC.NURSE ---
This nurse is unsure how the bed alarm turned off. Family has been taking pt to bathroom without staff assisting. We have educated that the alarm needs to be on.
[2024-01-14] VITALS (9 sets, daily range): BP systolic 148–155; BP diastolic 67–70; PULSE 64–83; RESP 19–20; TEMP 36.6–36.9; O2SAT 100
[2024-01-14 05:49] LABS: Glucose Point of Care 96 mg/dl (65-105)
--- NOTE | 2024-01-14 07:59 | PM.IMPN ---
Progress Note: A&P Assessment and Plan (1) Alcoholic pancreatitis: Code(s): K85.20 - Alcohol induced acute pancreatitis without necrosis or infection Status: Acute Assessment and Plan: Reported use of at least a 12 pack of beer daily and 1/2 bottle of hard liquor daily for the past eight years. Last drink was 4 days ago. - Abdomen/pelvis CT: . No acute intra-abdominal/pelvic process. Cholelithiasis. Extensive diverticulosis. Prostatomegaly. Bilateral fat-containing inguinal hernias and tiny fat-containing umbilical hernia. - Abdomen US: Cholelithiasis. Diffuse hepatic steatosis. - MRCP: Diffuse hepatic steatosis. Cholelithiasis. No evidence of acute cholecystitis. - Lipase 755 on admission, downtrended to 364 on 01/11 - NS IV 100 ml/hr - GI consulted mrcp reviewed, cholelithiasis and fatty liver, normal bile duct, no need of scope will advance diet (2) Alcoholism: Code(s): F10.20 - Alcohol dependence, uncomplicated Status: Chronic Assessment and Plan: Reported use of at least a 12 pack of beer daily and 1/2 bottle of hard liquor daily for the past eight years. Last drink was 4 days ago. - Continue CIWA evaluation and management as directed. - Continue Thiamine, folic acid, and Protonix (3) Memory changes: Code(s): R41.3 - Other amnesia Status: Acute Assessment and Plan: Per patients daughters he has seemed more confused for at least 6 months to a year. - Suspect chronic in nature. Etiology Dementia vs. ETOH encephalopathy vs. Forgetfulness. - Ammonia level WNL - Monitor. (4) Cholelithiasis: Qualifiers: Biliary obstruction: without biliary obstruction Cholecystitis presence: without cholecystitis Cholelithiasis location: gallbladder Qualified Code(s): K80.20 - Calculus of gallbladder without cholecystitis without obstruction Code(s): K80.20 - Calculus of gallbladder without cholecystitis without obstruction Status: Acute Assessment and Plan: - Abdomen/pelvis CT: . No acute intra-abdominal/pelvic process. Cholelithiasis. Extensive diverticulosis. Prostatomegaly. Bilateral fat-containing inguinal hernias and tiny fat-containing umbilical hernia. - Abdomen US: Cholelithiasis. Diffuse hepatic steatosis. - MRCP: Diffuse hepatic steatosis. Cholelithiasis. No evidence of acute cholecystitis. - GI consulted Likely alcohol related Continue thiamine, nutrition Hepatitis panel negative (5) Acute kidney injury: Code(s): N17.9 - Acute kidney failure, unspecified Status: Resolved Assessment and Plan: BUN/Cr 4/0.9 on am labs Resolved. (6) Hyperbilirubinemia: Code(s): E80.6 - Other disorders of bilirubin metabolism Status: Acute Assessment and Plan: Most likely secondary to complication of ETOH abuse and fatty liver. However, given elevation, Choledocholithiasis must be also ruled out. Awaiting MRCP that will be done tomorrow. GI consulted and awaiting recommendations. Continue Protonix. Continue to trend and monitor liver function. 01/13/24: Remains elevated at 1.8 Awaiting results of MRCP Dr. Anguiano has consulted Obtain Hepatitis panel 01/14/24: Remains elevated but down trending, now at 1.6 (7) Hypokalemia: Code(s): E87.6 - Hypokalemia Status: Resolved Assessment and Plan: Pts potassium increased from 2.7-->3.1. Additional 40 mEq po given to further increase the potassium level at this time. Continue to trend and monitor. 01/13/24: Resolved at this time at 3.6. 01/14/24: K 3.0 on am labs supplemental K given (8) Hypomagnesemia: Code(s): E83.42 - Hypomagnesemia Status: Resolved Assessment and Plan: Resolved after administration of supplemental magnesium. Current Magnesium is 1.7. (9) Hyponatremia: Code(s): E87.1 - Hypo-osmolality and hyponatremia Status: Acute Assessment and Plan: Remains low at 131. Con
[2024-01-14] MEDS: THIAMINE HCL 200 MG/2 ML VIAL 100 MG IV PUSH (08:14)
[2024-01-14] MEDS: CALCIUM/VITAMIN D 500 MG/5 MCG (200 I.U.) TABLET PO ×2 (08:15→16:24)
[2024-01-14] MEDS: TAMSULOSIN HCL 0.4 MG CAPSULE PO (08:15)
[2024-01-14] MEDS: FOLIC ACID 1 MG TABLET PO (08:15)
[2024-01-14] MEDS: PANTOPRAZOLE SODIUM IV 40 MG VIAL IV PUSH ×2 (08:15→20:41)
[2024-01-14 08:34] LABS: Basophils Absolute Auto 0.1 K/mm3 (0.0-0.1); Basophils Percent Auto 1.3 % (0.2-1.2); Eosinophils Absolute Auto 0.1 K/mm3 (0-0.3); Eosinophils Percent Auto 2.7 % (0-4.4); Hematocrit 36.8 % (42.0-52.0); Hemoglobin 12.7 g/dL (14.0-18.0); Immature Granulocyte Absolute 0.05 K/mm3 (0.00-0.031); Immature Granulocyte Percent A 1.3 % (0-0.5); Lymphocytes Absolute Auto 1.33 K/mm3 (0.9-3.2); Lymphocytes Percent Auto 35.5 % (18.3-44.2); Mean Corpuscular HGB Conc 34.5 g/dl (32-36); Mean Corpuscular Hemoglobin 35.3 pg (26-34); Mean Corpuscular Volume 102.2 fl (80-100); Monocytes Absolute Auto 0.5 K/mm3 (0.1-0.6); Monocytes Percent Auto 12.5 % (2.6-8.5); Neutrophils Absolute Auto 1.8 K/mm3 (1.3-6.7); Neutrophils Percent Auto 46.7 % (45.5-73.1); Platelet Count Result 121 k/mm3 (150-375); Red Cell Distribution Width 13.9 % (11.5-14.5); White Blood Count 3.8 K/mm3 (4.5-10.0)
[2024-01-14 08:54] LABS: Alanine Aminotransferase 19 U/L (6-50); Alkaline Phosphatase 116 U/L (38-126); Anion Gap 6 mmol/L (4-12); Aspartate Amino Transferase 43 U/L (17-59); Bilirubin,Total 1.6 mg/dL (0.2-1.3); Blood Urea Nitrogen 4 mg/dL (9-20); Calcium 7.8 mg/dL (8.4-10.2); Carbon Dioxide 30 mmol/L (22-30); Chloride 97 mmol/L (98-107); Estimated CRCL calculation 42 ml/min; Estimated Glomerular Filt Rate > 60; Glucose 88 mg/dL (65-110); Sodium 133 mmol/L (137-145)
[2024-01-14] MEDS: ENOXAPARIN 40 MG/0.4 ML SYRINGE SUB-Q (09:02)
[2024-01-14] MEDS: POTASSIUM CHLORIDE 20 MEQ ER TABLET 40 MEQ PO (09:44)
[2024-01-14 10:18] LABS: Ammonia < 9 umol/L (9-30)
[2024-01-14 11:42] LABS: Glucose Point of Care 113 mg/dl (65-105)
[2024-01-14 12:54] LABS: Osmolality, Urine 504 mOsm/kg (50-1200)
[2024-01-14] MEDS: SODIUM CHLORIDE 0.9% IV 1,000 ML 100 ML IV CONT ×2 (13:05→23:49)
--- NOTE | 2024-01-14 15:06 | WPDGIPROGNO ---
Progress Note: A&P Assessment and Plan (1) Alcoholic pancreatitis: Code(s): K85.20 - Alcohol induced acute pancreatitis without necrosis or infection Status: Acute Assessment and Plan: tolerating diet, denies pain no need of scope (2) Elevated liver enzymes: Code(s): R74.8 - Abnormal levels of other serum enzymes Status: Acute Assessment and Plan: trending down (3) Upper abdominal pain: Code(s): R10.10 - Upper abdominal pain, unspecified Status: Acute Assessment and Plan: resolved (4) Cholelithiasis: Qualifiers: Biliary obstruction: without biliary obstruction Cholecystitis presence: without cholecystitis Cholelithiasis location: gallbladder Qualified Code(s): K80.20 - Calculus of gallbladder without cholecystitis without obstruction Code(s): K80.20 - Calculus of gallbladder without cholecystitis without obstruction Status: Acute Assessment and Plan: pancreatitis most likely related to alcohol use denies any abdominal pain now Subjective Date/time seen: 01/14/24 15:06 Interval history: he is feeling much better, tolerating diet hoping to go home soon Review of Systems Review of Systems: All systems reviewed & are unremarkable except as noted in HPI and below Exam Const: General: comfortable and no acute distress HENMT: Face/Nose/Sinus: Normal nares present Eyes: General: appearance normal, both eyes and all related structures Neck: Neck: supple Resp: Auscultation: clear to auscultation bilaterally Cardio: Rate: regular rate Rhythm: regular rhythm GI: Inspection: non-distended GI Palp: Yes Soft to palpation and No Tenderness to palpation present (GI) Auscultation: normal bowel sounds Skin: General skin exam: normal color Neuro: Speech: normal speech Motor exam (neuro): 5/5 motor strength present throughout Extrem: General: normal to inspection Psych: Mental Status: mental status grossly normal Objective Data Vital Signs Vital Signs: Vital Signs - 24 hr 01/13/24 16:00 01/13/24 21:41 01/13/24 20:00 Temperature 98.5 F Pulse Rate 81 73 81 Pulse Rate [Right Radial] Respiratory Rate 18 Blood Pressure 146/76 H Pulse Oximetry 100 01/13/24 20:00 01/14/24 00:00 01/14/24 00:00 Temperature Pulse Rate 67 Pulse Rate [Right Radial] 81 67 Respiratory Rate Blood Pressure Pulse Oximetry 01/14/24 05:50 01/14/24 04:00 01/14/24 08:00 Temperature 98.5 F Pulse Rate 83 67 Pulse Rate [Right Radial] 64 Respiratory Rate 20 Blood Pressure 150/68 H Pulse Oximetry 100 01/14/24 12:00 Temperature Pulse Rate 79 Pulse Rate [Right Radial] Respiratory Rate Blood Pressure Pulse Oximetry Intake/Output Intake/Output: Intake & Output 01/11/24 01/12/24 01/13/24 01/14/24 23:59 23:59 23:59 23:59 Intake Total 2570 3809 4040.3 1440 Output Total 264 685 4563 Balance 2570 3059 3475.3 -1260 Meds/Results Medications: Active Medications Generic Name Dose Route Start Last Admin Trade Name Freq PRN Reason Stop Dose Admin Calcium Carbonate 500 mg 01/13/24 17:00 01/14/24 08:15 Calcium/Vitamin D 500 Mg/5 Mcg (200 I.U.) Tablet PO 500 mg BIDWM PASCUAL Administration Dextrose 12.5 gm 01/11/24 20:41 01/13/24 07:06 Dextrose 50% 25 Gm/50 Ml Syringe IV PUSH 12.5 gm PRN PRN Administration Hypoglycemia Protocol Enoxaparin Sodium 40 mg 01/12/24 09:00 01/14/24 09:02 Enoxaparin 40 Mg/0.4 Ml Syringe SUB-Q 40 mg DAILY PASCUAL Administration Folic Acid 1 mg 01/13/24 09:00 01/14/24 08:15 Folic Acid 1 Mg Tablet PO 1 mg DAILY PASCUAL Administration Glucagon 1 mg 01/11/24 20:41 Glucagon For Inj 1 Mg Vial IM PRN PRN Hypoglycemia Protocol Glucose 15 gm 01/11/24 20:41 Glucose Oral Gel 15 Gm Of Glucse In 37.5 Gm Tube PO PRN PRN Hypoglycemia Protocol Guaifenesin/Dextromethorphan 10 ml
[2024-01-14 18:48] LABS: Glucose Point of Care 129 mg/dl (65-105)
[2024-01-14 23:49] LABS: Glucose Point of Care 92 mg/dl (65-105)
[2024-01-15] VITALS (9 sets, daily range): BP systolic 114–156; BP diastolic 75–81; PULSE 71–86; RESP 18–20; TEMP 36.5–36.9; O2SAT 99–100
[2024-01-15 05:53] LABS: Glucose Point of Care 95 mg/dl (65-105)
[2024-01-15 06:54] LABS: Basophils Absolute Auto 0.1 K/mm3 (0.0-0.1); Basophils Percent Auto 1.2 % (0.2-1.2); Eosinophils Absolute Auto 0.1 K/mm3 (0-0.3); Eosinophils Percent Auto 1.9 % (0-4.4); Hematocrit 35.2 % (42.0-52.0); Hemoglobin 12.4 g/dL (14.0-18.0); Immature Granulocyte Absolute 0.02 K/mm3 (0.00-0.031); Immature Granulocyte Percent A 0.5 % (0-0.5); Lymphocytes Absolute Auto 1.38 K/mm3 (0.9-3.2); Lymphocytes Percent Auto 32.5 % (18.3-44.2); Mean Corpuscular HGB Conc 35.2 g/dl (32-36); Mean Corpuscular Volume 102.3 fl (80-100); Mean Platelet Volume 8.2 fl (7.4-10.4); Monocytes Absolute Auto 0.6 K/mm3 (0.1-0.6); Monocytes Percent Auto 13.2 % (2.6-8.5); Neutrophils Absolute Auto 2.2 K/mm3 (1.3-6.7); Neutrophils Percent Auto 50.7 % (45.5-73.1); Platelet Count Result 129 k/mm3 (150-375); Red Blood Count 3.44 M/mm3 (4.6-6.20); Red Cell Distribution Width 14.1 % (11.5-14.5); White Blood Count 4.2 K/mm3 (4.5-10.0)
[2024-01-15] MEDS: TAMSULOSIN HCL 0.4 MG CAPSULE PO (08:13)
[2024-01-15] MEDS: FOLIC ACID 1 MG TABLET PO (08:13)
[2024-01-15] MEDS: PANTOPRAZOLE SODIUM IV 40 MG VIAL IV PUSH ×2 (08:13→20:15)
[2024-01-15] MEDS: THIAMINE HCL 200 MG/2 ML VIAL 100 MG IV PUSH (08:13)
[2024-01-15] MEDS: CALCIUM/VITAMIN D 500 MG/5 MCG (200 I.U.) TABLET PO ×2 (08:13→16:17)
[2024-01-15] MEDS: ENOXAPARIN 40 MG/0.4 ML SYRINGE SUB-Q (08:13)
[2024-01-15 08:41] LABS: Alanine Aminotransferase 18 U/L (6-50); Albumin Level 2.9 g/dL (3.5-5.1); Alkaline Phosphatase 95 U/L (38-126); Anion Gap 7 mmol/L (4-12); Aspartate Amino Transferase 38 U/L (17-59); Bilirubin,Total 1.1 mg/dL (0.2-1.3); Blood Urea Nitrogen 6 mg/dL (9-20); Calcium 7.7 mg/dL (8.4-10.2); Carbon Dioxide 29 mmol/L (22-30); Chloride 94 mmol/L (98-107); Estimated CRCL calculation 42 ml/min; Estimated Glomerular Filt Rate > 60; Glucose 140 mg/dL (65-110); Potassium 2.6 mmol/L (3.4-5.0); Sodium 130 mmol/L (137-145)
[2024-01-15 09:04] LABS: Phosphorus 2.6 mg/dL (2.5-4.5)
[2024-01-15] MEDS: POTASSIUM CHLORIDE INJ 40 MEQ in SODIUM CHLORIDE 0.9% IV 500 ML 70 MEQ IVPB (09:47)
[2024-01-15] MEDS: POTASSIUM CHLORIDE 20 MEQ ER TABLET 40 MEQ PO (09:48)
[2024-01-15 11:30] LABS: Glucose Point of Care 123 mg/dl (65-105)
--- NOTE | 2024-01-15 12:45 | PM.IMPN ---
Progress Note: A&P Assessment and Plan (1) Hypokalemia: Code(s): E87.6 - Hypokalemia Status: Resolved Assessment and Plan: Pts potassium increased from 2.7-->3.1. Additional 40 mEq po given to further increase the potassium level at this time. Continue to trend and monitor. 01/13/24: Resolved at this time at 3.6. 01/14/24: K 3.0 on am labs supplemental K given 01/15/24: K 2.6 on am labs supplemental K of 40 IV and 40 PO given Patient is not on any medications that would cause hypokalemia, Phos is WNL, patient no longer having diarrhea and denies vomiting. Possible that this is due to poor nutrition vs increased urine output. (2) Alcoholic pancreatitis: Code(s): K85.20 - Alcohol induced acute pancreatitis without necrosis or infection Status: Acute Assessment and Plan: Reported use of at least a 12 pack of beer daily and 1/2 bottle of hard liquor daily for the past eight years. Last drink was 4 days ago. - Abdomen/pelvis CT: . No acute intra-abdominal/pelvic process. Cholelithiasis. Extensive diverticulosis. Prostatomegaly. Bilateral fat-containing inguinal hernias and tiny fat-containing umbilical hernia. - Abdomen US: Cholelithiasis. Diffuse hepatic steatosis. - MRCP: Diffuse hepatic steatosis. Cholelithiasis. No evidence of acute cholecystitis. - Lipase 755 on admission, downtrended to 364 on 01/11 - NS IV 100 ml/hr - GI consulted mrcp reviewed, cholelithiasis and fatty liver, normal bile duct, no need of scope will advance diet, tolerating low fat diet well. denies nausea/vomiting and diarrhea (3) Alcoholism: Code(s): F10.20 - Alcohol dependence, uncomplicated Status: Chronic Assessment and Plan: Reported use of at least a 12 pack of beer daily and 1/2 bottle of hard liquor daily for the past eight years. Last drink was 4 days ago. - Continue CIWA evaluation and management as directed. - Continue Thiamine, folic acid, and Protonix (4) Memory changes: Code(s): R41.3 - Other amnesia Status: Acute Assessment and Plan: Per patients daughters he has seemed more confused for at least 6 months to a year. Patient remains AOx3. - Suspect chronic in nature. Etiology Dementia vs. ETOH encephalopathy vs. Forgetfulness. - Ammonia level WNL - Monitor. (5) Cholelithiasis: Qualifiers: Biliary obstruction: without biliary obstruction Cholecystitis presence: without cholecystitis Cholelithiasis location: gallbladder Qualified Code(s): K80.20 - Calculus of gallbladder without cholecystitis without obstruction Code(s): K80.20 - Calculus of gallbladder without cholecystitis without obstruction Status: Acute Assessment and Plan: - Abdomen/pelvis CT: . No acute intra-abdominal/pelvic process. Cholelithiasis. Extensive diverticulosis. Prostatomegaly. Bilateral fat-containing inguinal hernias and tiny fat-containing umbilical hernia. - Abdomen US: Cholelithiasis. Diffuse hepatic steatosis. - MRCP: Diffuse hepatic steatosis. Cholelithiasis. No evidence of acute cholecystitis. - GI consulted Likely alcohol related Continue thiamine, nutrition Hepatitis panel negative (6) Acute kidney injury: Code(s): N17.9 - Acute kidney failure, unspecified Status: Resolved Assessment and Plan: BUN/Cr 6/0.9 on am labs Resolved. (7) Hyperbilirubinemia: Code(s): E80.6 - Other disorders of bilirubin metabolism Status: Acute Assessment and Plan: Most likely secondary to complication of ETOH abuse and fatty liver. However, given elevation, Choledocholithiasis must be also ruled out. Awaiting MRCP that will be done tomorrow. GI consulted and awaiting recommendations. Continue Protonix. Continue to trend and monitor liver function. 01/13/24: Remains elevated at 1.8 Awaiting results of MRCP Dr. Anguiano has consulted Obtain Hepatitis panel 01/14/24: Remains elevated but down trending, no
--- NOTE | 2024-01-15 15:42 | WPDGIPROGNO ---
Progress Note: A&P Assessment and Plan (1) Alcoholic pancreatitis: Code(s): K85.20 - Alcohol induced acute pancreatitis without necrosis or infection Status: Acute Assessment and Plan: tolerating diet but still poor appetite denies pain hopefully home tomorrow (2) Elevated liver enzymes: Code(s): R74.8 - Abnormal levels of other serum enzymes Status: Acute Assessment and Plan: bili is down to normal (3) Upper abdominal pain: Code(s): R10.10 - Upper abdominal pain, unspecified Status: Acute Assessment and Plan: resolved (4) Cholelithiasis: Qualifiers: Biliary obstruction: without biliary obstruction Cholecystitis presence: without cholecystitis Cholelithiasis location: gallbladder Qualified Code(s): K80.20 - Calculus of gallbladder without cholecystitis without obstruction Code(s): K80.20 - Calculus of gallbladder without cholecystitis without obstruction Status: Acute Assessment and Plan: pancreatitis most likely related to alcohol use denies any abdominal pain now (5) Hypokalemia: Code(s): E87.6 - Hypokalemia Status: Resolved Assessment and Plan: repleting today Subjective Date/time seen: 01/15/24 15:42 Interval history: no abdominal pain or nausea he is eating but poor appetite Review of Systems Review of Systems: All systems reviewed & are unremarkable except as noted in HPI and below Exam Const: General: comfortable and no acute distress HENMT: Face/Nose/Sinus: Normal nares present Eyes: General: appearance normal, both eyes and all related structures Neck: Neck: supple Resp: Auscultation: clear to auscultation bilaterally Cardio: Rate: regular rate Rhythm: regular rhythm GI: Inspection: non-distended GI Palp: Yes Soft to palpation and No Tenderness to palpation present (GI) Auscultation: normal bowel sounds Skin: General skin exam: normal color Neuro: Speech: normal speech Motor exam (neuro): 5/5 motor strength present throughout Extrem: General: normal to inspection Psych: Mental Status: mental status grossly normal Objective Data Vital Signs Vital Signs: Vital Signs - 24 hr 01/14/24 16:00 01/14/24 20:15 01/14/24 20:00 Temperature 98.3 F Pulse Rate 82 77 Pulse Rate [Monitor] Pulse Rate [Right Radial] 77 Respiratory Rate 20 Blood Pressure 155/70 H Pulse Oximetry 100 Oxygen Delivery 01/14/24 20:00 01/15/24 00:00 01/14/24 20:00 Temperature Pulse Rate 74 Pulse Rate [Monitor] Pulse Rate [Right Radial] 77 Respiratory Rate Blood Pressure Pulse Oximetry Oxygen Delivery Room Air 01/15/24 00:00 01/15/24 04:00 01/15/24 04:00 Temperature Pulse Rate 74 86 Pulse Rate [Monitor] 83 Pulse Rate [Right Radial] Respiratory Rate Blood Pressure Pulse Oximetry Oxygen Delivery 01/15/24 05:51 01/15/24 08:39 01/15/24 08:00 Temperature 97.7 F Pulse Rate 73 Pulse Rate [Monitor] Pulse Rate [Right Radial] Respiratory Rate 20 Blood Pressure 155/75 H Pulse Oximetry 99 Oxygen Delivery Room Air Room Air 01/15/24 08:00 01/15/24 12:00 01/15/24 14:00 Temperature 97.9 F Pulse Rate 84 82 82 Pulse Rate [Monitor] Pulse Rate [Right Radial] Respiratory Rate 20 Blood Pressure 114/79 Pulse Oximetry 100 Oxygen Delivery Intake/Output Intake/Output: Intake & Output 01/12/24 01/13/24 01/14/24 01/15/24 23:59 23:59 23:59 23:59 Intake Total 3809 4040.3 2980 1240 Output Total 238 396 2030 2050 Balance 3059 3475.3 -320 -810 Meds/Results Medications: Active Medications Generic Name Dose Route Start Last Admin Trade Name Freq PRN Reason Stop Dose Admin Calcium Carbonate 500 mg 01/13/24 17:00 01/15/24 08:13 Calcium/Vitamin D 500 Mg/5 Mcg (200 I.U.) Tablet PO 500 mg BIDWM PASCUAL Administration Dextrose 12.5 gm 01/11/24 20:41 01/13/24 07:06 Dextros
[2024-01-15 17:24] LABS: Glucose Point of Care 106 mg/dl (65-105)
[2024-01-15 23:44] LABS: Glucose Point of Care 90 mg/dl (65-105)
[2024-01-16] VITALS: PULSE 86
[2024-01-16 04:00] VITALS: PULSE 68; PULSE 75
[2024-01-16 05:31] VITALS: BP 142/78; PULSE 78; RESP 20; TEMP 36.4; O2SAT 99
[2024-01-16 05:32] LABS: Glucose Point of Care 105 mg/dl (65-105)
[2024-01-16 07:07] LABS: Basophils Absolute Auto 0.1 K/mm3 (0.0-0.1); Basophils Percent Auto 1.4 % (0.2-1.2); Eosinophils Absolute Auto 0.1 K/mm3 (0-0.3); Eosinophils Percent Auto 2.5 % (0-4.4); Hematocrit 35.6 % (42.0-52.0); Hemoglobin 12.2 g/dL (14.0-18.0); Immature Granulocyte Absolute 0.01 K/mm3 (0.00-0.031); Immature Granulocyte Percent A 0.3 % (0-0.5); Lymphocytes Absolute Auto 1.27 K/mm3 (0.9-3.2); Lymphocytes Percent Auto 35.4 % (18.3-44.2); Mean Corpuscular HGB Conc 34.3 g/dl (32-36); Mean Corpuscular Hemoglobin 34.9 pg (26-34); Mean Corpuscular Volume 101.7 fl (80-100); Mean Platelet Volume 7.9 fl (7.4-10.4); Monocytes Absolute Auto 0.6 K/mm3 (0.1-0.6); Monocytes Percent Auto 15.3 % (2.6-8.5); Neutrophils Absolute Auto 1.6 K/mm3 (1.3-6.7); Neutrophils Percent Auto 45.1 % (45.5-73.1); Platelet Count Result 143 k/mm3 (150-375); White Blood Count 3.6 K/mm3 (4.5-10.0)
[2024-01-16 07:30] LABS: Alanine Aminotransferase 21 U/L (6-50); Albumin Level 3.1 g/dL (3.5-5.1); Alkaline Phosphatase 101 U/L (38-126); Anion Gap 7 mmol/L (4-12); Aspartate Amino Transferase 48 U/L (17-59); Bilirubin,Total 1.2 mg/dL (0.2-1.3); Blood Urea Nitrogen 6 mg/dL (9-20); Calcium 8.5 mg/dL (8.4-10.2); Carbon Dioxide 28 mmol/L (22-30); Chloride 96 mmol/L (98-107); Estimated CRCL calculation 42 ml/min; Estimated Glomerular Filt Rate > 60; Glucose 86 mg/dL (65-110); Potassium 3.6 mmol/L (3.4-5.0); Sodium 131 mmol/L (137-145)
[2024-01-16 08:00] VITALS: PULSE 81
[2024-01-16] MEDS: FOLIC ACID 1 MG TABLET PO (09:47)
[2024-01-16] MEDS: TAMSULOSIN HCL 0.4 MG CAPSULE PO (09:47)
[2024-01-16] MEDS: THIAMINE HCL 100 MG TABLET PO (09:47)
[2024-01-16] MEDS: PANTOPRAZOLE 40 MG TABLET PO (09:47)
[2024-01-16] MEDS: ENOXAPARIN 40 MG/0.4 ML SYRINGE SUB-Q (09:47)
[2024-01-16] MEDS: CALCIUM/VITAMIN D 500 MG/5 MCG (200 I.U.) TABLET PO (09:47)
[2024-01-16 11:32] LABS: Glucose Point of Care 132 mg/dl (65-105)
[2024-01-16 12:00] VITALS: PULSE 82
--- NOTE | 2024-01-16 13:26 | PM.DS ---
DS: Admitting Diagnosis Discharge Date 01/16/2024 Admitting Diagnosis hypokalemia alcoholic pancreatitis alcoholism memory changes cholelithiasis PREETI hyperbilirubinemia hypomagnesemia hyponatremia hypocalcemia diarrhea heart murmur diastolic dysfunction BPH GERD DS: Discharge Diagnosis Discharge Diagnosis (1) Hypokalemia: Code(s): E87.6 - Hypokalemia Status: Resolved (2) Alcoholic pancreatitis: Code(s): K85.20 - Alcohol induced acute pancreatitis without necrosis or infection Status: Acute (3) Alcoholism: Code(s): F10.20 - Alcohol dependence, uncomplicated Status: Chronic (4) Memory changes: Code(s): R41.3 - Other amnesia Status: Acute (5) Cholelithiasis: Qualifiers: Biliary obstruction: without biliary obstruction Cholecystitis presence: without cholecystitis Cholelithiasis location: gallbladder Qualified Code(s): K80.20 - Calculus of gallbladder without cholecystitis without obstruction Code(s): K80.20 - Calculus of gallbladder without cholecystitis without obstruction Status: Acute (6) Acute kidney injury: Code(s): N17.9 - Acute kidney failure, unspecified Status: Resolved (7) Hyperbilirubinemia: Code(s): E80.6 - Other disorders of bilirubin metabolism Status: Acute (8) Hypomagnesemia: Code(s): E83.42 - Hypomagnesemia Status: Resolved (9) Hyponatremia: Code(s): E87.1 - Hypo-osmolality and hyponatremia Status: Acute (10) Hypocalcemia: Code(s): E83.51 - Hypocalcemia Status: Acute (11) Diarrhea: Code(s): R19.7 - Diarrhea, unspecified Status: Acute (12) Heart murmur: Code(s): R01.1 - Cardiac murmur, unspecified Status: Acute (13) Diastolic dysfunction: Code(s): I51.89 - Other ill-defined heart diseases Status: Acute (14) BPH (benign prostatic hyperplasia): Qualifiers: Lower urinary tract symptom detail: urinary frequency Lower urinary tract symptom presence: symptoms present Qualified Code(s): N40.1 - Benign prostatic hyperplasia with lower urinary tract symptoms; R35.0 - Frequency of micturition Code(s): N40.0 - Benign prostatic hyperplasia without lower urinary tract symptoms Status: Chronic (15) GERD (gastroesophageal reflux disease): Qualifiers: Esophagitis presence: esophagitis presence not specified Qualified Code(s): K21.9 - Gastro-esophageal reflux disease without esophagitis Code(s): K21.9 - Gastro-esophageal reflux disease without esophagitis Status: Chronic DS: Summary Hospital Course Reason for hospitalization: hypokalemia alcoholic pancreatitis alcoholism memory changes cholelithiasis PREETI hyperbilirubinemia hypomagnesemia hyponatremia hypocalcemia diarrhea heart murmur diastolic dysfunction BPH GERD Hospital Course: 83-year-old [place]ian-speaking only male with past medical history of alcoholism, GERD and BPH who presented to the ER in the company of [employer] due to nausea, vomiting, urinary frequency, and increased confusion. On admission patient's labs were without leukocytosis and chemistry showed hypokalemia of 2.7, hypomagnesemia of 1.4, and hyponatremia of 130. PREETI also seen. All repleted at that time and PREETI resolved with fluids. Potassium continued to be low throughout admission, however patient remained asymptomatic. Patient is not on any medications that would cause hypokalemia, Phos is WNL, patient no longer having diarrhea and denies vomiting. Possible that this is due to poor nutrition vs increased urine output. Prior to discharge his potassium was WNL. Lipase was 755. Head CT showed Age-appropriate mild to moderate diffuse brain volume loss. No acute intracranial process.Abdomen/pelvis CT showing no acute intra-abdominal/pelvic process, cholelithiasis, extensive diverticulosis, prostatomegaly, bilateral fat-containing in
--- NOTE | 2024-01-16 13:40 | PC.NURSE ---
discharge instructions reviewed with pt's family and med list reviewed and compared to home med bottles with family
--- NOTE | 2024-01-16 15:49 | WPDGIPROGNO ---
Progress Note: A&P Assessment and Plan (1) Alcoholic pancreatitis: Code(s): K85.20 - Alcohol induced acute pancreatitis without necrosis or infection Status: Acute Assessment and Plan: tolerating diet but poor appetite denies pain ok to go home (2) Elevated liver enzymes: Code(s): R74.8 - Abnormal levels of other serum enzymes Status: Acute Assessment and Plan: improved follow-up office in 3-4 weeks (3) Upper abdominal pain: Code(s): R10.10 - Upper abdominal pain, unspecified Status: Acute Assessment and Plan: resolved (4) Cholelithiasis: Qualifiers: Biliary obstruction: without biliary obstruction Cholecystitis presence: without cholecystitis Cholelithiasis location: gallbladder Qualified Code(s): K80.20 - Calculus of gallbladder without cholecystitis without obstruction Code(s): K80.20 - Calculus of gallbladder without cholecystitis without obstruction Status: Acute Assessment and Plan: pancreatitis most likely related to alcohol use denies any abdominal pain now Subjective Date/time seen: 01/16/24 11:40 Interval history: doing well, he is doing home Review of Systems Review of Systems: All systems reviewed & are unremarkable except as noted in HPI and below Exam Const: General: comfortable and no acute distress HENMT: Face/Nose/Sinus: Normal nares present Eyes: General: appearance normal, both eyes and all related structures Neck: Neck: supple Resp: Auscultation: clear to auscultation bilaterally Cardio: Rate: regular rate Rhythm: regular rhythm GI: Inspection: non-distended GI Palp: Yes Soft to palpation and No Tenderness to palpation present (GI) Auscultation: normal bowel sounds Skin: General skin exam: normal color Neuro: Speech: normal speech Motor exam (neuro): 5/5 motor strength present throughout Extrem: General: normal to inspection Psych: Mental Status: mental status grossly normal Objective Data Vital Signs Vital Signs: Vital Signs - 24 hr 01/15/24 16:00 01/15/24 20:38 01/15/24 20:00 Temperature 98.4 F Pulse Rate 71 82 Pulse Rate [Monitor] Respiratory Rate 18 Blood Pressure 156/81 H Pulse Oximetry 100 Oxygen Delivery Room Air 01/15/24 20:00 01/16/24 00:00 01/16/24 04:00 Temperature Pulse Rate 79 86 68 Pulse Rate [Monitor] Respiratory Rate Blood Pressure Pulse Oximetry Oxygen Delivery 01/16/24 04:00 01/16/24 05:31 01/16/24 08:15 Temperature 97.6 F Pulse Rate 78 Pulse Rate [Monitor] 75 Respiratory Rate 20 Blood Pressure 142/78 H Pulse Oximetry 99 Oxygen Delivery Room Air 01/16/24 08:00 01/16/24 12:00 Temperature Pulse Rate 81 82 Pulse Rate [Monitor] Respiratory Rate Blood Pressure Pulse Oximetry Oxygen Delivery Intake/Output Intake/Output: Intake & Output 01/13/24 01/14/24 01/15/24 01/16/24 23:59 23:59 23:59 23:59 Intake Total 4040.3 2980 3278 990 Output Total 565 3300 2450 Balance 3475.3 -320 828 990 Meds/Results Radiology Results: ITS Impressions Chest X-Ray 01/11/24 16:53 IMPRESSION: 1. No acute cardiopulmonary disease. Abdomen/Pelvis CT 01/11/24 17:05 IMPRESSION: 1. No acute intra-abdominal/pelvic process. 2. Cholelithiasis. 3. Extensive diverticulosis. 4. Prostatomegaly. 5. Bilateral fat-containing inguinal hernias and tiny fat-containing umbilical hernia. Head CT 01/11/24 17:09 IMPRESSION: 1. Age-appropriate mild to moderate diffuse brain volume loss. No acute intracranial process. Abdomen Ultrasound 01/11/24 17:41 IMPRESSION: 1. Cholelithiasis. 2. Diffuse hepatic steatosis. MRCP 01/13/24 15:51 IMPRESSION: 1. Diffuse hepatic steatosis. 2. Cholelithiasis. No evidence of acute cholecystitis. Labs Labs: Laboratory Results - last 24 hr 01/15/24 01/15/24 01/16/24 17:21 23:39 05:22 WBC RBC Hgb Hc
== END 2024-01-16 13:40 | disposition home or self-care (01) | DRG 439 ==
LOC: ANHED 14:56 → ANH3MEDSUR 21:11
PROVIDERS: Emergency Medicine; Nurse Practitioner Adult Health; Admitting Provider Internal Medicine; Emergency Provider Physician Assistant; Visit Provider Student in an Organized Health Care Education/Training Program
DX: K85.20 Alcohol induced acute pancreatitis without necrosis or infection (principal); E87.1 Hypo-osmolality and hyponatremia; N17.9 Acute kidney failure, unspecified; E87.6 Hypokalemia; K21.9 Gastro-esophageal reflux disease without esophagitis; E80.6 Other disorders of bilirubin metabolism; F10.20 Alcohol dependence, uncomplicated; R41.3 Other amnesia; E86.0 Dehydration; K70.0 Alcoholic fatty liver; E83.42 Hypomagnesemia; R74.8 Abnormal levels of other serum enzymes; E83.51 Hypocalcemia; R01.1 Cardiac murmur, unspecified; N40.1 Benign prostatic hyperplasia with lower urinary tract symptoms; R35.0 Frequency of micturition; K57.90 Diverticulosis of intestine, part unspecified, without perforation or abscess without bleeding; R19.7 Diarrhea, unspecified; I51.89 Other ill-defined heart diseases; Z96.652 Presence of left artificial knee joint; Z96.1 Presence of intraocular lens; Z98.42 Cataract extraction status, left eye; Z98.41 Cataract extraction status, right eye; Z87.891 Personal history of nicotine dependence
CPT/HCPCS: 36415; 70450; 71046; 74177; 74183; 76376; 76705; 80048; 80053; 80074; 80307; 81001; 82140; 82607; 82746; 82948; 83605; 83690; 83735; 83935; 84100; 84300; 84443; 85025; 85027; 85610; 87045; 87427; 87449; 87493; 87636; 96361; 96365; 96375; 96376; 97161; 97165; 99285; A9270; A9577; C8929; G0378; J1650; J2060; J2270; J2405; J2470; J3411; J3475; J3480; J7030; J7040; Q9957; Q9967

== ENCOUNTER 2024-07-21 15:54 | Outpatient (CLI) | payer MEDICARE, MEDICAID, SELFPAY ==
--- NOTE | ~2024-07-21 | XR_ITS ---
CHEST RADIOGRAPH CLINICAL HISTORY: chronic cough . COMPARISON: 01/20/2024 TECHNIQUE: Single portable view of the chest. FINDINGS The cardiomediastinal silhouette is unremarkable. The lungs are clear. Visualized osseous structures and soft tissues are unremarkable. IMPRESSION: No focal infiltrate or effusion. Reviewed, dictated and finalized at location A.
--- OUTSIDE RECORDS SUMMARY | 2024-07-21 17:43 | XMS_ITS | Data Portability ---
Author Organization [place] [facility], Main Office Address [address] [place] [address] Assessment Encounter Date Assessment Date Assessment LastModified by Organization Details LastModified Time 05/20/2024 05/20/2024 This note is dictated and transcribed by [employer]. Office Rep variances may occur. Despite proofreading, typographical errors may occur. Occasional wrong-word or 'zpuig-p-vcci' substitutions may have occurred due to the inherent limitations of voice recording. Read the chart carefully and recognize, using context, where substitutions have occurred. pro Not available 05/20/2024 17:25:57 06/10/2024 06/10/2024 This note is dictated and transcribed by [employer]. Office Rep variances may occur. Despite proofreading, typographical errors may occur. Occasional wrong-word or 'fzjtz-z-rkew' substitutions may have occurred due to the inherent limitations of voice recording. Read the chart carefully and recognize, using context, where substitutions have occurred. pro Not available 06/10/2024 17:01:11 Plan of Treatment Reminders Order Date Submit Date Provider Last Modified By Organization Details Last Modified Time Details Appointments None record ed. Lab None record ed. Referral None record ed. Procedures None record ed. Surgeries None record ed. Imaging None record ed. Medication Orders None record ed. Patient TargetsNo targets recorded. Patient Instructions Encounter Date Encounter Id Patient Instructions Last Modified By Organization Details Last Modified Time 06/10/2024 [id number] paronychia: care instructions pro Not available 06/10/2024 17:01:23 Reason for Referral None Reported. Problems Name Problem SNOMED Code Status Onset Date Resolution Date Notes Provider Name and Address Organization Details Recorded Time Onychomycosis of toenails [id number] Active 2024 Remy Plaza, TINA [address], [address], [place], [address], [employer] [facility] 17:26:02 Problem Notes None recorded. Procedures Surgical History Date Name Laterality Status Provider Name and Address Organization Details Recorded Time 5 Toenail avulsion completed Remy Plaza DPM [address], [address], [place], [address], [employer] [facility] 06/10/2024 17:01:04 5 Nail Debridement completed Remy Plaza DPM [address] [facility], [facility] [address], [place], [address], [employer] [facility] 05/20/2024 17:25:54 Imaging Results None recorded. Procedure Notes None recorded. Medical Equipment None Reported. Allergies Allergen ID Allergen Name Allergen Category Reaction Reaction Severity Criticality Documentation Date Start Date Code Code System Note Provider Name and Address Organization Details Recorded Time 03497 Product containin g penicilli n (product) medicatio n Not available Not available Not available 05/20/2024 89147 8001 SNOMED Shoshana dent, [place] [facility] 16:16:28 Medications Name Sig Start Date Stop Date Status Note LastModified by Organization Details LastModified Time sulfamethoxa zole 800 mg-trimethop rim 160 mg tablet TAKE 1 TABLET BY MOUTH TWICE DAILY FOR 7 DAYS active Not Available Not Available No t Available methocarbamo l 750 mg tablet TAKE 1 TABLET BY MOUTH THREE TIMES DAILY active Not Available Not Available Not Available tamsulosin 0.4 mg capsule TAKE 2 CAPSULES BY MOUTH EVERY DAY AT BEDTIME active Not Available Not Available No t Available omeprazole 20 mg capsule,nancy yed release TAKE 1 CAPSULE BY MOUTH EVERY DAY IN THE MORNING active Not Available Not Available No t Available methylpredni solone 4 mg tablets in a dose pack FOLLOW PACKAGE DIRECTIONS active Not Available Not Available N ot Available Jublia 10 % topical solution with applicator APPLY TO TOENAIL ONCE DAILY active Not Available Not Available N ot Available Vitals None Recorded Social History Question Answer Notes LastModified by Organizat ion Details LastModified Time Tobacco Smoking Status Former Smoker Shoshana dent [place] [facility] [employer] 05/20/2024 16:20:37 What Is Your Level Of Alcohol Consumption? None Information not available 05/20/2024 What Is Your Level Of Caffeine Consumption? Occasional Information not available 05/20/2024 What Was The Date Of Your Most Recent Tobacco Screening? 05/20/2024 Information not available 05/20/2024 Do You Use Any Illicit Or Recreational Drugs? No Information not available 05/20/2024 Has Tobacco Cessation Counseling Been Provided? No Information not available 05/20/2024 Do You Or Have You Ever Used Any Other Forms Of Tobacco Or Nicotine? No Information not available 05/20/2024 Sex: Unknown Functional Status None recorded. Mental Status None recorded. Family History Relationship Description Onset Age of this Age Resolved Age Notes LastModified by Organization Details LastModified Time Mother Diabetes mellitus Not available 2024 16:20:01 Sister Malignant neoplastic disease Not available 2024 16:20:12 Medical History Condition Response ARTHRITIS Y ANEMIA/BLOOD DISORDER Y HEARTBURN / REFLUX Y Past Encounters Encounter ID Performer Location Encounter Start Date Encounter Closed Date Diagnosis/Indication Diagnosis SNOMED-CT Code Diagnosis ICD10 Code Diagnosis Note [id number] Remy Plaza DPM [facility] [place] [address] [place] [address] 05/20/2024 16:10:14 06/29/2024 15:22:12 Onychomycosis of toenails 797483395 B35.1 nails debrided without incidentEd ucated on treatment optionsPat ient will return for total nail avulsion of bilateral great toenailsFo llow-up for total nail avulsion procedure both great toenails [id number] Remy Plaza DPM [facility] [place] [address], [address] [place] [address] 06/10/2024 15:50:56 06/11/2024 07:43:13 Onychomycosis of toenails 685177195 B35.1 right great toenail avulsion todayWound care instructio joey reviewed with the patient to his complete full understand ing.Monito r for signs of infection at present seek medical attention immediatel yFollow-up in 1 week Health Concerns Section Related Observation LastModified by Organization Detai ls LastModified Time None Recorded Concern Status LastModified by Organization Details LastModified Time None Recorded Advance Directives Directive None Recorded Payers Encounter Date Sequence Insurance Name Policy Number Policy Smart Covered Member ID Smart Member ID Guarantor Name 05/20/2024 1 [place] [id number] [facility] 05/20/2024 2 [place] [facility] OF PUBLIC AID Curt [place] [id number] [facility] 06/10/2024 1 [place] [id number] [facility] 06/10/2024 2 [place] [facility] AID Curt [place] [id number] [facility] Notes Date Note Type Note Provider Name and Address Organization Details Recorded Time 05/20/2024 text/html . Patient is an 84-year-old male who presents to the office with his son for complaints of thickening to bilateral great toenails worse to the right. Patient has thickening and discoloration that is worsening. Patient has had this for several years and has not improved he denies any therapy for this condition. Patient presents in wheelchair he does walk but has difficulty with mobility. Patient denies any other complaints. Patient is also mostly Persian-speaking and he elects to have his son translate for him at this visit. Remy Plaza DPM [address] [place] [address], [address], [facility] [employer] 05/24/2024 09:56:39 06/10/2024 text/html . Patient is a 84-year-old male Persian speaking who presents to the office with his family member who speaks [place] and the patient requests his family interpret for him. Patient states he continues have thickening of the worse to the right great toenail he states that he wants to proceed with a right great toenail avulsion to see if the nail will improve due to the thickening and discomfort. Patient denies any other complaints. All risks, benefits, complications reviewed with the patient to his complete full understanding prior to procedure and he elects to continue. Remy Plaza, TINA [address] [facility] [address], [place], [address], [facility] [employer] [facility] 06/10/2024 17:02:47
--- OUTSIDE RECORDS SUMMARY | 2024-07-21 17:43 | XMS_ITS | Data Portability ---
Author Organization [place] Address [address] [facility] [place] [address] Assessment Encounter Date Assessment Date Assessment LastModified by Organization Details LastModified Time 03/02/2024 03/02/2024 01/11/24 ast/ alt 66 21 potassium: 3.1 Not available 03/02/2024 15:56:10 05/17/2024 05/17/2024 covid declines utd on flu shot Not available 05/17/2024 15:15:06 Plan of Treatment Reminders Order Date Submit Date Provider Last Modified By Organization Details Last Modified Time Details Appointments ANY 30 2024 03:30P M BRYCE KINNEY Not available Not available Not available ANY 15 2024 03:00P M Gonzalez Myers MD Not available Not available Not available Lab lipid panel, serum 2023 [facility], [address] [place] [address], [address], [place], [address], 03/03/2024 19:09:25 HbA1c (hemoglo bin A1c), blood 2023 [facility], [address] [place] [address], [address], [place], [address], 03/03/2024 19:09:30 TSH, ultra-se nsitive, serum 2023 [facility], [address] [place] [address], [address], [place], [address], 03/03/2024 19:09:27 CMP, serum or plasma 2023 024 [facility], [address], [address], [place], [address], 03/03/2024 19:09:26 TSH, ultra-se nsitive, serum 2023 024 [facility], [address], [address], [place], [address], 05/13/2024 17:12:22 CBC w/ auto diff 2023 024 [facility], [address], [address], [place], [address], 03/03/2024 19:09:34 PSA, serum or plasma 2023 024 [facility], [address], [address], [place], [address], 03/03/2024 19:09:28 urinalys is, complete 2023 024 [facility], [address], [address], [place], [address], 03/03/2024 19:09:31 culture, urine 2023 024 [facility], [address], [address], [place], [address], 05/13/2024 17:12:22 Referral physical therapis t referral [address] (Outpatient Physical Therapy), [address], [place], [address], 06/03/2024 09:05:02 urologis t referral 2023 024 [email or web address] [facility] (Medicare/Med icaid), [address] [facility], [address], [place], [address], 03/02/2024 15:59:[address] referral - please call pt to schedule 2023 ALTHEA Huntley DPM, [address] [facility], [facility] [address], [place], [address], 03/29/2024 12:50:43 orthoped ic surgeon referral 2023 jorgito Myers MD, [address] [facility], [place], [address], 03/25/2024 14:19:25 Procedures None recorded . Surgeries None recorded . Imaging XR, chest, 2 view [address] (Imaging), [address] [facility] [address], [place], [address], 06/15/2024 08:00:59 Medication Orders Celeston e Soluspan 6 mg/mL suspensi on for injectio n 2024 025 abeverlyma Not available 06/10/2024 17:11:58 methocar bamol 750 mg tablet 2023 [id number], [address] [facility], [place], [place], [id number], 05/17/2024 14:43:25 tamsulos in 0.4 mg capsule 2023 024 [facility], [address] [facility], [place], [place], [id number], 03/02/2024 15:59:31 Jublia 10 % topical solution with applicat or 2023 [facility], [address] [facility], [place], [place], [id number], 03/02/2024 16:03:55 omeprazo le 20 mg capsule, delayed release 2023 024 [place] [facility], [address] , [place], [place], [id number], 03/02/2024 15:59:33 Medrol (Joaquin) 4 mg tablets in a dose pack 2023 025 [place] [facility], [address], [place], [place], [id number], 05/17/2024 14:43:36 Patient TargetsNo targets recorded. Patient Instructions Encounter Date Encounter Id Patient Instructions Last Modified By Organization Details Last Modified Time 03/02/2024 [id number] A healthy lifestyle: care instructions Not available 03/02/2024 15:59:26 03/10/2024 [id number] A healthy lifestyle: care instructions Not available 03/10/2024 16:42:16 05/17/2024 [id number] A healthy lifestyle: care instructions Not available 05/17/2024 15:12:48 Reason for Referral Orthopedic Surgeon Referral for Pain of right knee joint Referring Physician: Ivana Lora [facility] Medicine, Encounter Date: 03/02/2024 Technical Writer Referral for 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 please call pt to schedule Referring Physician: Ivana Lora [facility] Medicine, Encounter Date: 03/02/2024 Urologist Referral for Large prostate Referring Physician: Ivana Lora [facility] Medicine, Encounter Date: 03/02/2024 Physical Therapist Referral for Impairment of balance Referring Physician: Carlene Diaz, Mannequin Molder, Encounter Date: 05/17/2024 Results Created Date Observation Date Name Description Value Unit Range Abnormal Flag Note LastModifiedBy Organization Detail LastModifiedTime 03/02/2003/03/[address] PROBL EM request problem TNP Test not perfo rmed. Patie nt was unabl e to provi de a self- colle cted speci men for the reque sted testi ng. The follo wing test( s) were not perfo rmed: TEST: 18555 2 Urina lysis , Compl ete Not Available [facility] ([facility]) [address] [place], [address], 03/03/2024 19:09:24 03/02/2003/03/2024 LIPID PANEL cholesterol, total 170 mg/dL 100-19 9 Not Available [facility] ([facility]) [address] [place], [address], 03/03/2024 19:09:25 03/02/2003/03/2024 LIPID PANEL triglyceride s 108 mg/dL 0-149 Not Available [facility] ([facility]) [address] [place], [address], 03/03/2024 19:09:25 03/02/20 24 03/03/2024 LIPID PANEL HDL cholesterol 37 mg/dL >39 below low normal Not Available [facility] ([facility]) [address] [place], [address], 03/03/2024 19:09:25 03/02/20 24 03/03/2024 LIPID PANEL VLDL cholesterol lemuel 20 mg/dL 5-40 Not Available [facility] ([facility]) [address] [place], [address], 03/03/2024 19:09:25 03/02/20 24 03/03/2024 LIPID PANEL LDL chol calc ([facility]) 113 mg/dL 0-99 above high normal Not Available [facility] ([facility]) [address] [place], [address], 03/03/2024 19:09:25 03/02/20 24 03/03/2024 CMP14 +EGFR glucose 88 mg/dL 70-99 Not Available [facility] ([facility]) [address] [place], [address], 03/03/2024 19:09:26 03/02/20 24 03/03/2024 CMP14 +EGFR BUN 18 mg/dL 8-27 Not Available [facility] ([facility]) [address] [facility], [place], [address], 03/03/2024 19:09:26 03/02/20 24 03/03/2024 CMP14 +EGFR creatinine 1.17 mg/dL 0.76-1 .27 Not Available [facility] ([facility]) [address] [facility], [place], [address], 03/03/2024 19:09:26 03/02/2003/03/2024 CMP14 +EGFR eGFR 61 mL/mi n/1.7 3 >59 Not Available [facility] ([facility]) [address] [facility], [place], [address], 03/03/2024 19:09:26 03/02/2003/03/2024 CMP14 +EGFR BUN/creatini ne ratio 15 10-24 Not Available [facility] ([facility]) [address] [facility], [place], [address], 03/03/2024 19:09:26 03/02/20 24 03/03/2024 CMP14 +EGFR sodium 134 mmol/ L 134-14 4 Not Available [facility] ([facility]) [address] [facility], [place], [address], 03/03/2024 19:09:26 03/02/2003/03/2024 CMP14 +EGFR potassium 4.6 mmol/ L 3.5-5. 2 Not Available [facility] ([facility]) [address] [place], [address], 03/03/2024 19:09:26 03/02/20 24 03/03/2024 CMP14 +EGFR chloride 97 mmol/ L 96-106 Not Available [facility] ([facility]) [address], [place], [address], 03/03/2024 19:09:26 03/02/2003/03/2024 CMP14 +EGFR carbon dioxide, total 24 mmol/ L Not Available [facility] ([facility]) [address] [facility], [place], [address], 03/03/2024 19:09:26 03/02/2003/03/2024 CMP14 +EGFR calcium 9.8 mg/dL 8.6-10 .2 Not Available [facility] ([facility]) [address] [facility], [place], [address], 03/03/2024 19:09:26 03/02/2003/03/2024 CMP14 +EGFR protein, total 7.1 g/dL 6.0-8. 5 Not Available [facility] ([facility]) [address] [facility], [place], [address], 03/03/2024 19:09:26 03/02/2003/03/2024 CMP14 +EGFR albumin 3.9 g/dL 3.7-4. 7 Not Available [facility] ([facility]) [address] [facility], [place], [address], 03/03/2024 19:09:26 03/02/2003/03/2024 CMP14 +EGFR globulin, total 3.2 g/dL 1.5-4. 5 Not Available [facility] ([facility]) [address] [facility], [place], [address], 03/03/2024 19:09:26 03/02/2003/03/2024 CMP14 +EGFR bilirubin, total 0.5 mg/dL 0.0-1. 2 Not Available [facility] ([facility]) [address] [facility], [place], [address], 03/03/2024 19:09:26 03/02/2003/03/2024 CMP14 +EGFR alkaline phosphatase 86 IU/L 44-121 Not Available [facility] ([facility]) [address] [place], [address], 03/03/2024 19:09:26 03/02/20 24 03/03/2024 CMP14 +EGFR AST (SGOT) 15 IU/L 0-40 Not Available [facility] ([facility]) [address] [place] [address], [address], 03/03/2024 19:09:26 03/02/2003/03/2024 CMP14 +EGFR ALT (SGPT) 7 IU/L 0-44 Not Available [facility] ([facility]) [address] [place], [address], 03/03/2024 19:09:26 03/02/2003/03/2024 TSH RFX ON ABNOR MAL TO FREE T4 TSH 1.630 uIU/m L 0.450- 4.500 Not Available [facility] ([facility]) [address] [place] [address], [address], 03/03/2024 19:09:27 03/02/2003/03/2024 PSA (SERI AL MONIT OR) prostate specific Ag 2.0 NG/mL 0.0-4. 0 Jessie ECLIA metho dolog y. Accor ding to the Ameri can [employer]o g[employer] iatio n, Serum PSA shoul d decre ase and remai n at undet ectab le level s after radic al prost atect alexandre. The AUA defin es bioch emica l recur rence as an initi al PSA value 0.2 ng/mL or great er follo wed by a subse quent confi rmato ry PSA value 0.2 ng/mL or great er. Value s obtai santhosh with diffe rent assay metho ds or kits canno t be used inter perez eably . Resul ts canno t be inter prete d as absol elim ira evide nce of the prese nce or absen ce of oc rodriguez se. Not Available [facility] ([facility]) [address] [facility] [place], [address], 03/03/2024 19:09:28 03/02/2003/03/2024 PSA (SERI AL MONIT OR) pdf . Not Available [facility] ([facility]) [address] [facility] [place], [address], 03/03/2024 19:09:28 03/02/2003/02/2024 UNABL E TO VOID unable to void COMMEN T Patie nt unabl e to void. Urine to be colle cted at a later date. Not Available [facility] ([facility]) [address] [facility], [place], [address], 03/03/2024 19:09:29 03/02/2003/03/2024 HEMOG LOBIN A1C hemoglobin A1C 5.6 % 4.8-5. 6 Predi abete s: 5.7 - 6.4 Diabe francis: >6.4 Glyce antoinette contr ol for adult s with diabe francis: <7.0 Not Available [facility] ([facility]) [address] [place], [address], 03/03/2024 19:09:30 03/02/2003/03/2024 URINA LYSIS , COMPL ETE specific gravity - Test not perfo rmed. Patie nt was unabl e to provi de a self- colle cted speci men for the reque sted testi ng. The follo wing test( s) were not perfo rmed: Not Available [facility] ([facility]) [address] [facility] [place], [address], 03/03/2024 19:09:31 03/02/2003/03/2024 URINA LYSIS , COMPL ETE pH - Test not perfo rmed Not Available [facility] ([facility]) [address] [place], [address], 03/03/2024 19:09:31 03/02/20 24 03/03/2024 URINA LYSIS , COMPL ETE protein - Test not perfo rmed Not Available [facility] ([facility]) [address] [facility], [place], [address], 03/03/2024 19:09:31 03/02/20 24 03/03/2024 URINA LYSIS , COMPL ETE glucose - Test not perfo rmed Not Available [facility] ([facility]) [address] [facility], [place], [address], 03/03/2024 19:09:31 03/02/2003/03/2024 URINA LYSIS , COMPL ETE ketones - Test not perfo rmed Not Available [facility] ([facility]) [address] [place], [address], 03/03/2024 19:09:31 03/02/20 24 03/03/2024 TSH TSH - uIU/m L Dupli anel proce dure order ed. Not Available [facility] ([facility]) [address] [place], [address], 03/03/2024 19:09:33 03/02/20 24 03/03/2024 CBC WITH DIFFE RENTI AL/PL ATELE T WBC 6.2 x10e3 /uL 3.4-10 .8 Not Available [facility] ([facility]) [address] [place], [address], 03/03/2024 19:09:34 03/02/20 24 03/03/2024 CBC WITH DIFFE RENTI AL/PL ATELE T RBC 3.60 x10e6 /uL 4.14-5 .80 below low normal Not Available [facility] ([facility]) [address] [place], [address], 03/03/2024 19:09:34 10/03/03/2024 CBC WITH DIFFE RENTI AL/PL ATELE T hemoglobin 12.2 g/dL 13.0-1 7.7 below low normal Not Available [facility] ([facility]) [address] [facility], [place], [address], 03/03/2024 19:09:34 03/02/20 24 03/03/2024 CBC WITH DIFFE RENTI AL/PL ATELE T hematocrit 36.1 % 37.5-5 1.0 below low normal Not Available [facility] ([facility]) [address] [facility], [place], [address], 03/03/2024 19:09:34 03/02/2003/03/2024 CBC WITH DIFFE RENTI AL/PL ATELE T MCV 100 fL 79-97 above high normal Not Available [facility] ([facility]) [address] [place], [address], 03/03/2024 19:09:34 03/02/2003/03/2024 CBC WITH DIFFE RENTI AL/PL ATELE T MCH 33.9 pg 26.6-3 3.0 above high normal Not Available [facility] ([facility]) [address] [facility], [place], [address], 03/03/2024 19:09:34 03/02/2003/03/2024 CBC WITH DIFFE RENTI AL/PL ATELE T MCHC 33.8 g/dL 31.5-3 5.7 Not Available [facility] ([facility]) [address] [place], [address], 03/03/2024 19:09:34 03/02/2003/03/2024 CBC WITH DIFFE RENTI AL/PL ATELE T RDW 11.7 % 11.6-1 5.4 Not Available [facility] ([facility]) [address] [place], [address], 03/03/2024 19:09:34 03/02/20 24 03/03/2024 CBC WITH DIFFE RENTI AL/PL ATELE T platelets 317 x10e3 /uL 150-45 0 Not Available [facility] ([facility]) [address] [facility], [place], [address], 03/03/2024 19:09:34 03/02/20 24 03/03/2024 CBC WITH DIFFE RENTI AL/PL ATELE T neutrophils 49 % notest ab. Not Available [facility] ([facility]) [address] [facility], [place], [address], 03/03/2024 19:09:34 03/02/2003/03/2024 CBC WITH DIFFE RENTI AL/PL ATELE T lymphs 33 % notest ab. Not Available [facility] ([facility]) [address] [facility], [place], [address], 03/03/2024 19:09:34 03/02/20 24 03/03/2024 CBC WITH DIFFE RENTI AL/PL ATELE T monocytes 11 % notest ab. Not Available [facility] ([facility]) [address] [facility], [place], [address], 03/03/2024 19:09:34 03/02/20 24 03/03/2024 CBC WITH DIFFE RENTI AL/PL ATELE T eos 6 % notest ab. Not Available [facility] ([facility]) [address] [facility], [place], [address], 03/03/2024 19:09:34 03/02/20 24 03/03/2024 CBC WITH DIFFE RENTI AL/PL ATELE T basos 1 % notest ab. Not Available [facility] ([facility]) [address] [facility], [place], [address], 03/03/2024 19:09:34 03/02/20 24 03/03/2024 CBC WITH DIFFE RENTI AL/PL ATELE T neutrophils (absolute) 3.0 x10e3 /uL 1.4-7. 0 Not Available [facility] ([facility]) [address] [facility], [place], [address], 03/03/2024 19:09:34 03/02/20 24 03/03/2024 CBC WITH DIFFE RENTI AL/PL ATELE T lymphs (absolute) 2.0 x10e3 /uL 0.7-3. 1 Not Available [facility] ([facility]) [address] [facility], [place], [address], 03/03/2024 19:09:34 03/02/2003/03/2024 CBC WITH DIFFE RENTI AL/PL ATELE T monocytes(ab solute) 0.7 x10e3 /uL 0.1-0. 9 Not Available [facility] ([facility]) [address] [facility], [place], [address], 03/03/2024 19:09:34 03/02/20 24 03/03/2024 CBC WITH DIFFE RENTI AL/PL ATELE T eos (absolute) 0.4 x10e3 /uL 0.0-0. 4 Not Available [facility] ([facility]) [address] [facility], [place], [address], 03/03/2024 19:09:34 03/02/20 24 03/03/2024 CBC WITH DIFFE RENTI AL/PL ATELE T baso (absolute) 0.1 x10e3 /uL 0.0-0. 2 Not Available [facility] ([facility]) [address] [facility], [place], [address], 03/03/2024 19:09:34 03/02/20 24 03/03/2024 CBC WITH DIFFE RENTI AL/PL ATELE T immature granulocytes 0 % notest ab. Not Available [facility] ([facility]) [address] [facility], [place], [address], 03/03/2024 19:09:34 03/02/20 24 03/03/2024 CBC WITH DIFFE RENTI AL/PL ATELE T immature grans (abs) 0.0 x10e3 /uL 0.0-0. 1 Not Available [facility] ([facility]) [address], [place], [address], 03/03/2024 19:09:34 06/09/19 25 06/07/2024 XR, knee, 3 view No observ ation record ed. [facility] [address], [place], [address], 06/10/2024 11:52:30 07/22/19 25 07/21/2024 XR, chest , 2 view No observ ation record ed. [facility] [address], [place], [address], 07/21/2024 18:32:01 Result Notes None recorded. 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 676044066 Active 2023 Ivana Lora PA-C Attn: Abbey g,[address] [place], [address], [facility] - [facility] 4 16:00:45 Large prostate 521843365 Active 2023 Ivana Lora PA-C Attn: Abbey g,[address] [place], [address], [place] [facility] 4 16:01:03 Pain of right shoulder joint 9351574961953 9100 Active 2023 Ivana Lora PA-C Attn: Abbey mayorga,[address] [facility], [place], [address], [place] [facility] 4 16:11:59 Chronic cough 01098387 Active 2024 BRYCE KINNEY Attn: Accountlevon g,[address] [facility], [place], [address], [place] [facility] 5 15:13:44 Impairment of balance 793281756 Active 2024 BRYCE KINNEY Attn: Abbey mayorga,[address] [facility], [place], [address], [place] [facility] 5 15:13:45 Problem Notes None recorded. Procedures Surgical History Date Name Laterality Status Provider Name and Address Organization Details Recorded Time 06/07/19 25 Right Arthrocentesis Major Joint completed Gonzalez Myers MD [address] [place], [address], [place] [facility] 06/07/2024 16:47:29 inguinal region repair completed BRYCE KINNEY Attn: Accounting,[address] [facility], [place], [address], [place] [facility] 05/17/2024 14:51:42 Imaging Results Imaging Date Name Status LastModified by Organiz ation Details LastModified Time 06/07/2024 XR, knee, [address] [facility] [address], [place], [address], 06/10/2024 11:52:30 07/21/2024 XR, chest, 2 view active [facility] [address] [facility] [address], [place], [address], 07/21/2024 18:32:01 Procedure Notes None recorded. Medical Equipment None Reported. Allergies Allergen ID Allergen Name Allergen Category Reaction Reaction Severity Criticality Documentation Date Start Date Code Code System Note Provider Name and Address Organization Details Recorded Time 18180620 Product containin g penicilli n (product) medicatio n chest pain moderate high 06/07/2024 66510 8001 SNOMED Not Available Not Available Not Available Medications Name Sig Start Date Stop Date Status Note LastModified by Organization Details LastModified Time Celestone Soluspan 6 mg/mL suspension for injection Take 3 mL by injection route. 2024 active Not Available Not Available Not Avai lable methocarbam ol 750 mg tablet TAKE 1 TABLET BY MOUTH THREE TIMES DAILY 05/17 completed Not Available Not Available Not Available tamsulosin 0.4 mg capsule TAKE 2 CAPSULES BY MOUTH EVERY DAY AT BEDTIME active Not Available Not Available No t Available omeprazole 20 mg capsule,del ayed release TAKE 1 CAPSULE BY MOUTH EVERY DAY IN THE MORNING active Not Available Not Available No t Available methylpredn isolone 4 mg tablets in a dose pack FOLLOW PACKAGE DIRECTION S 05/17 completed Not Available Not Available Not Available solifenacin 10 mg tablet Take 1 tablet every day by oral route. active Not Available Not Available No t Available Jublia 10 % topical solution with applicator APPLY TO TOENAIL ONCE DAILY active Not Available Not Available No t Available Vitals Date Recorded Body weight Respiratory rate Oxygen saturation Oxygen saturation in Arterial blood by Pulse oximetry Heart rate Body temperature Body mass index (BMI) Body height Systolic blood pressure Diastolic blood pressure Provider Name and Address Organization Details Last Updated DateTime 4 49689.2 9 g 18 /min 97 % 97 % 84 /min 97.4 [degF] 31.2 kg/m2 146.05 cm 120 mm[Hg] 78 mm[Hg] Aisha Nelson [place] [facility] 4 15:26:18 Date Recorded Body height Provider Name an d Address Organization Details Last Updated DateTime 03/10/2024 146.05 cm Aisha Nelson MA [facility] 03/10 15:04:02 Date Recorded Body height Body mass index (BMI) Body weight Body temperature Heart rate Systolic blood pressure Diastolic blood pressure Provider Name and Address Organization Details Last Updated DateTime 5 146.05 cm 31.5 kg/m2 19289.3 9 g 97.3 [degF] 74 /min 153 mm[Hg] 79 mm[Hg] Gretchen Hodge [place] [facility] 16:13:52 Social History Question Answer Notes LastModified by Organizat ion Details LastModified Time Tobacco Smoking Status Former Smoker started 35 quit 65 1ppd BRYCE KINNEY Attn: Accounting,[address] [facility], [place], [address], [facility] 05/17/2024 14:49:39 What Is Your Level Of Alcohol Consumption? None Information not available 05/17/2024 Do You Have A Medical Power Of Hollow Tile Partition Erector? No Information not available 06/07/2024 What Was The Date Of Your Most Recent Tobacco Screening? 06/07/2024 Information not available 06/07/2024 What Is Your Current Pack Years? 30ormoreamanda barron Information not available 05/17/2024 At What Age Did You Start Smoking Tobacco? 33 Information not available 05/17/2024 How Much Tobacco Do You Smoke? No Information not available 05/17/2024 Has Tobacco Cessation Counseling Been Provided? Yes Information not available 05/17/2024 On What Date Was Tobacco Cessation Counseling Provided? 05/17/2024 Information not available 05/17/2024 How Many Years Have You Smoked Tobacco? 30 Information not available 05/17/2024 Sex: Unknown Functional Status None recorded. Mental Status None recorded. Family History Relationship Description Onset Age of this Age Resolved Age Notes LastModified by Organization Details LastModified Time Mother Diabetes mellitus Not available 2024 14:52:07 Medical History No medical history recorded. 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 record from January al placed to urologistl abs orderedwil l increase tamsulosin 0.8mg at bedtime Gastritis 4758367 K29.70 chronicsta ble on omeprazole 20mg Elevated l evel of transaminase and lactic acid dehydrogenase 488586956 R74.01 reviewed recent ER visit patient was admitted for alcohol dependence has since stopped drinking alcohol in January4curren tly taking multivitam inrepeat labs ordered Hypokalemia 59765081 E87 .6 reviewed recent ER visit patient was admitted for alcohol dependence has since stopped drinking alcohol in January4curren tly taking multivitam inrepeat labs ordered Pain of ri ght shoulder joint 2161104072 9874846 M25.511 6month historyno traumawill send medrol dose packfollow up in 1 weekif symptoms persist will order xraypatien t already referred to ortho [id number] Ivana Lora PA-C [facility] (Adult Med) [address] [place] [address] 03/10/2024 14:48:16 03/11/2024 10:14:17 Body mass index 30+ - obesity 991301107 Z68.30 Obesity 764705410 E66.9 Pain of ri ght knee joint 5446263450 64644 M25.561 chronic knee painhad knee surgery on left knee in the pastwill refer to ortho 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 record from January al placed to urologistw ill increase tamsulosin 0.8mg at bedtime Gastritis 9745446 K29.70 chronicsta ble on omeprazole 20mg Pain of ri ght shoulder joint 5606888035 0950762 M25.511 6month historyno traumalitt le relief with medrol dose packwill send robaxin 750mg tidpatient has already been referred to ortho [id number] BRYCE KINNEY [facility] [address] [place] [address] 05/17/2024 13:41:16 05/18/2024 12:31:04 Chronic cough 63699014 R05.3 non-produc tive cough > 2 years ,no wheezing , no hemoptysis he has >30 pack year smoking hxquit age 63never has had LDCTobtain xray Impairment of balance 38 0997014 R26.89 patient with leg weakness and trouble balancing when walkingto avoid falls and hip fracture he agrees to PT Administra tion of pneumococcal vaccine 71695803 Z23 due for pneumonia vaccine Obesity 154089960 E66.9 [id number] Gonzalez Myers MD [facility] [address] [address] 06/07/2024 15:36:11 06/08/2024 13:41:31 Osteoarthritis of right knee joint 0948985934 34758 M17.11 Chondromal acia of right patella 8225835705 8570077 M22.41 History of left total knee replacement 9908978226 833729 Z96.652 Health Concerns Section Related Observation LastModified by Organization Detai ls LastModified Time None Recorded Concern Status LastModified by Organization Details LastModified Time None Recorded Advance Directives Directive None Recorded Payers Encounter Date Sequence Insurance Name Policy Number Policy Smart Covered Member ID Smart Member ID Guarantor Name 03/02/2024 1 [place] Curt [place] [id number] Curt Fleming 03/02/2024 2 [place] WHEN MED[place]ARE OR MEDICARE REPLACEMENT PRIMARY) Curt Fleming [id number] Curt Fleming 03/10/2024 1 [place] Curt [place] [id number] Curt Fleming 03/10/2024 2 [place] OR MEDIC[place] REPLACEMENT PRIMARY) Curt Fleming [id number] Curt Fleming 05/17/2024 2 [place] OR MEDICARE REPLACEMENT PRIMARY) Curt Fleming [id number] Curt Fleming 05/17/2024 1 [facility] (MEDICARE REPLACEMENT/AD VANTAGE - HMO) [id number] Curt Canada [id number] Curt Fleming 06/07/2024 1 [facility] (MEDICARE REPLACEMENT/AD VANTAGE - HMO) [id number] Curt [place] [id number] Curt Fleming 06/07/2024 2 [place] WHEN MEDICARE OR MEDICARE REPLACEMENT PRIMARY) Curt Fleming [id number] Curt Fleming Notes Date Note Type Note Provider Name and Address Organization Details Recorded Time 4 text/htm l Abdominal PainReported bypatient.Location:epigastri c Quality:bloating;cramping;fu llness Severity:mild Duration:intermittent Onset/Timing:gradual Associated Symptoms:heartburnNotes:rece nt er visit for alcohol dependencegiven omeprazolehelped with painstopped drinking in january 2024KneeReported bypatient.Quality:aching; throbbing Severity:mild Timing:gradual Context:overuse Alleviating Factors:rest; elevation; NSAIDs Associated Symptoms:no weakness; no numbness; no tingling; no redness; no warmth; no ecchymosis; no catching/locking; no buckling; no grinding; no instability; no radiation down leg; no drainage; no fever; no chills; no weight loss; no change in bowel/bladder habits;swelling;popping/clic kingRash/Skin LesionReported bypatient.Notes:discoloratio n of toenailsShoulderReported bypatient.Hand Dominance:right Location:bilateral Quality:aching Severity:moderate Timing:chronic Context:cannot identify Associated Symptoms:catching/locking;po pping/clickingUrinary FrequencyReported bypatient.Severity:moderate Associated Symptoms:dribbling;incontine nce;feelings of urgencyNotes:recent er visitwas diagnosed with large prostatetake flomax with little relief Ivana Lora PA-C Attn: Accounting,[address] [place] [address], [address], [place] - [facility] 03/02/2024 17:38:00 4 text/htm l Abdominal PainReported bypatient.Location:epigastri c Quality:bloating;cramping;fu llness Severity:mild Duration:intermittent Onset/Timing:gradual Associated Symptoms:heartburnNotes:rece nt er visit for alcohol dependencegiven omeprazolehelped with painstopped drinking in january 2024KneeReported bypatient.Quality:aching; throbbing Severity:mild Timing:gradual Context:overuse Alleviating Factors:rest; elevation; NSAIDs Associated Symptoms:no weakness; no numbness; no tingling; no redness; no warmth; no ecchymosis; no catching/locking; no buckling; no grinding; no instability; no radiation down leg; no drainage; no fever; no chills; no weight loss; no change in bowel/bladder habits;swelling;popping/clic kingRash/Skin LesionReported bypatient.Notes:discoloratio n of toenailsShoulderReported bypatient.Hand Dominance:right Location:bilateral Quality:aching Severity:moderate Timing:chronic Context:cannot identify Associated Symptoms:catching/locking;po pping/clickingUrinary FrequencyReported bypatient.Severity:moderate Associated Symptoms:dribbling;incontine nce;feelings of urgencyNotes:recent er visitwas diagnosed with large prostatetake flomax with little relief Ivana Lora PA-C Attn: Accounting,[address] [place] [address], [phone], [place] - [facility] 03/10/2024 16:42:42 5 text/htm jammie Elias is here to establish care Mere Fleming, daughter in law on phone. patient is present and able to answer all questions.She was seeing BRYCE Lora but clinic is too far. Curt endorses feeling good. He c/o of leg pain on occasion and loss of balance.denies falls. open to PT. He has some labs recently showing low rbc and MCV. He denies blood in stool. Has never had colon screen. Patient follows urology for prostate, has f/u with ortho for arm knees and will see landmen soon. States he is sleeping well and denies depression. denies SI/HI. medications: solifenacin 10mg qd and flomax daily. urologist [facility]. last seen apr 06, 2024. next visit Jun 08 2024. landmen may 20, 2024 gilles goldman one a day vitamin BRYCE KINNEY Attn: Accounting,[address] [place], [address], [facility] 05/17/2024 15:16:46 5 text/htm l KneeReported bypatient.Location:right; anterior; medial; deep Quality:aching; throbbing; deep; constant Severity:moderate Duration:continuous since onset Timing:chronic; gradual; recurrent Context:overuse; atraumatic Alleviating Factors:rest; walker Aggravating Factors:standing; bending/squatting; weight bearing; going from sit to stand; upstairs; downstairs; daytime; nighttime; cold weather; damp weather Associated Symptoms:no numbness; no tingling; no redness; no warmth; no ecchymosis; no catching/locking; no buckling; no instability; no drainage; no fever; no chills; no weight loss; no change in bowel/bladder habits;weakness;swelling;pop ping/clicking;grinding;radia tion down leg Previous Surgery:surgical procedure:; L TKR in [place] Prior Imaging:no recent studies Previous Injections:none Previous PT:none Gonzalez Myers MD [address], [place], [address], [facility] 06/07/2024 16:58:01
--- OUTSIDE RECORDS SUMMARY | 2024-07-21 17:43 | XMS_ITS | Encounter Summary ---
Author Organization [facility] Address [address] [place] [address] Phone Care Team Providers Care Assembly Machine Operator Name Role Phone Van Flowers AIR HAMMER STRIPPER, SLIP CASTER Unavailable + [phone] Ivana Lora Primary Care Provider [phone] Encounter Details Date Type Department Care Team (Late st Contact Info) Description 06/15/2024 Results Follow-Up [facility] [address] [place] [address] Van Flowers, AIR HAMMER STRIPPER, SLIP CASTER [address] [place] [address] Acute cystitis without hematuria (Primary Dx) Social History Tobacco Use Types Packs/Day Years Used Date Smoking Tobacco: Never Assessed Sex and Gender Information Value Date Recorded Sex Assigned at Not on file Legal Sex Male 3:18 PM CDT Gender Identity Not on file Sexual Orientation Not on file documented as of this encounter Progress Notes * Gina Barba RN - 06/18/2024 12:04 PM CST LMOM for pt daughter ENGINEER documented in this encounter Plan of Treatment Not on file documented as of this encounter Visit Diagnoses Diagnosis Acute cystitis without hematuria- Primary Acute cystitis documented in this encounter Care Teams Assembly Machine Operator Relationship Specialty Start Date End Date Ivana Lora PA [address] [place] [address] PCP - General Primary Care 04/02/24 Van Flowers APRN, SLIP CASTER [address] [place] [address] Nurse Practitioner Advanced Practice Nurse 04/02/24 documented as of this encounter
--- OUTSIDE RECORDS SUMMARY | 2024-07-21 17:43 | XMS_ITS | Encounter Summary ---
Author Organization [facility] Address [address] [place] [address] Phone Care Team Providers Care Instrument Repair Technician Name Role Phone Van Flowers APRN, CNP Unavailable + [phone] Ivana Lora Primary Care Provider [phone] Reason for Visit * Reason Comments Medication Refill Encounter Details Date Type Department Care Team (Late st Contact Info) Description 04/06/2024 Refill [facility] [address] [place] [address] Van Flowers APRN, ENROLLMENT SPECIALIST [address] [place] [address] Medication Refill Social History Tobacco Use Types Packs/Day Years Used Date Smoking Tobacco: Never Assessed Sex and Gender Information Value Date Recorded Sex Assigned at Not on file Legal Sex Male 3:18 PM CDT Gender Identity Not on file Sexual Orientation Not on file documented as of this encounter Plan of Treatment Not on file documented as of this encounter Visit Diagnoses Diagnosis OAB (overactive bladder) Hypertonicity of bladder documented in this encounter Care Teams Instrument Repair Technician Relationship Specialty Start Date End Date Ivana Lora PA [address] [facility] [address] PCP - General Primary Care 04/02/24 Van Flowers APRN, ENROLLMENT SPECIALIST [address] [place] [address] Nurse Practitioner Advanced Practice Nurse 04/02/24 documented as of this encounter
--- OUTSIDE RECORDS SUMMARY | 2024-07-21 17:43 | XMS_ITS | Continuity of Care Document ---
Author Organization [facility] Address [address] [place] [address] Phone Care Team Providers Care Marksmanship Instructor Name Role Phone Jean Pablo MD Unavailable [...] Diagnoses Date Provider Providers Copied on Encounter [facility], [address], [place], [place], [address] , tel: [phone] [place] [facility] No Information Sep-0 6-201 1 Samy Pena. [address] , [address], [place], [place], [address] . tel: [phone] [facility], [address], [place], [place], [address] , tel: [phone] [place] [facility] ROTATOR CUFF SYND NOS Sep-0 7-200 4 Samy Pena. [address] , [address], [place], [place], [address] . tel: [phone] [employer], [address], [place], [place], [address] , tel: [phone] [place] [facility] ESOPHAGEAL REFLUXMIXED HYPERLIPIDEMIALONG- TERM USE MEDS NECSCRN MALIG NEOP-PROSTATECHEST PAIN NOSASCVD Sep-0 3-200 4 Pablo Jean. [address] [facility] [address], [place], [place], [address] . tel: [phone] [employer], [address], [place], [place], [address] , tel: [phone] [place] [facility] HISTORY OF TOBACCO USEND VAC STRPTCS PNEUMNI BIMPACTED CERUMENVACCINATION FOR TD-DT Sep-0 2-200 4 Pablo Jean. [address] [facility] [address], [address], [place], [place], [address] . tel: [phone] Family History Family Member Type Diagnosis Age At Onset No Information Immunizations Vaccine Date Status Comments 60244 - Pneumococcal_PPV23 administered S ource: Source Unspecified 12812 - TD administered Source: Source Unspecified Payers Payer name Insurance type Covered democrat ID Authoriza tion(s) No Information Social History [...]
--- OUTSIDE RECORDS SUMMARY | 2024-07-21 17:43 | XMS_ITS | Clinical Summary ---
Author Organization [facility] Address [address] [place] [address] Phone Care Team Providers Care Oscillograph Technician Name Role Phone Van Flowers APRN, CNP Unavailable + [phone] Ivana Lora Primary Care Provider [phone] Allergies Active Allergy Reactions Criticality Noted Date Comments Penicillins Unknown 04/06/2024 Medications methocarbamol (ROBAXIN) 750 MG Tablet 3 4 Active tamsulosin (Flomax) 0.4 MG Capsule Take 0.4 mg by mouth daily. Active omeprazole (PriLOSEC) 20 MG CAPSULE DELAYED RELEASE Take 20 mg by mouth daily. Active Nutritional Supplements (EQUATE PO) Take by mouth. Prostate health beta plus Active solifenacin (VESICARE) 10 MG TabletIndication s:OAB (overactive bladder) TAKE 1 TABLET BY MOUTH DAILY 90 Tablet 4 Active nitrofurantoin, monohydrate-macr ocrystal, (MACROBID) 100 MG CapsuleIndicatio ns:Acute cystitis without hematuria Take 1 Capsule by mouth 2 times daily for 7 days. 14 Capsule 5 06/22/19 25 Encounters Date Type Department Care Team Description 06/15/2024 Results Follow-Up [facility] [address] [place] [address] Van Flowers APRN, CNP Acute cystitis without hematuria (Primary Dx) 06/08/2024 3:30 PM PIECE WORKER Office Visit [facility] [address] [place] [address] Van Flowers, NEUROLOGY TECHNOLOGIST, LEONARDA OAB (overactive bladder) (Primary Dx); Urinary frequency; Abnormal urinalysis Discharge Disposition: Discharged to home or Selfcare 06/08/2024 Travel from Last 3 Months Immunizations Immunization Administration Dates Next Due Influenza, high-dose, trivalent, PF 03/09/2024 Social History Tobacco Use Types Packs/Day Years Used Date Smoking Tobacco: Never Assessed Tobacco Cessation:Counseling Given: No Sex and Gender Information Value Date Recorded Sex Assigned at Not on file Legal Sex Male 3:18 PM CDT Gender Identity Not on file Sexual Orientation Not on file Last Filed Vital Signs Vital Sign Reading Time Taken Comments Blood Pressure 149/77 06/08/2024 3:38 PM PIECE WORKER Pulse 73 06/08/2024 3:38 PM PIECE WORKER Temperature - - Respiratory Rate 16 06/08/2024 3:38 PM PIECE WORKER Oxygen Saturation 98% 06/08/2024 3:38 PM PIECE WORKER Inhaled Oxygen Concentration - - Weight 72.6 kg (160 lb) 06/08/2024 3:38 PM PIECE WORKER Height 160 cm (5' 3 ) 06/08/2024 3:38 PM PIECE WORKER Body Mass Index 28.34 06/08/2024 3:38 PM PIECE WORKER Plan of Treatment Health Maintenance Due Date Last Done Comments Hepatitis C Virus (HCV) Screening 1940 TdaP Immunization 1940 Pneumococcal Immunization (5 0+ years) (1 of 1 - PCV) 02/26/1988 Zoster Immunization (1 of 2) 02/26/1988 Respiratory Syncytial Virus (RSV) Immunization (Adult) (1 - 1-dose 75+ series) 2013 SARS-COV-2 Immunization ( season) 2024 Influenza Immunization Completed 03/09/2024 Hepatitis B Immunization Aged Out No longer eligible based on patient's age to complete this topic Meningococcal Immunization (ACWY) Aged Out No longer eligible based on patient's age to complete this topic Rotavirus Immunization Aged Out No lo nger eligible based on patient's age to complete this topic Procedures Procedure Name Priority Date/Time Associated Diagnosis Comments CULTURE, URINE Routine 06/08/2024 4:01 PM PIECE WORKER Abnormal urinalysis POCT UA AUTOMATED W/O MICRO Routine 06/08/2024 3:44 PM PIECE WORKER OAB (overactive bladder) Urinary frequency YENNY,POST-VOID RES,US,NON-IMAGING Routine 06/08/2024 3:30 PM PIECE WORKER OAB (overactive bladder) Urinary frequency from Last 3 Months Results * CULTURE, URINE (06/08/2024 4:01 PM PIECE WORKER) Pathologist [facility] CULTURE RESULTS STAPHYLOCOCCUS EPIDERMIDIS 06/10/2024 4:20 PM PIECE WORKER [facility] CULTURE RESULTS ALSO MIXED GROWTH OF DISTAL URETHRA CONTAMINANTS. 06/10/2024 4:20 PM PIECE WORKER [facility] Culture URINE SPECIMEN COLLECTION, CLEAN CATCH / Unknown Non-Phlebotomy Collection / Unknown 06/08/2024 4:01 PM PIECE WORKER 06/08/2024 4:01 PM PIECE WORKER Narrative Organism Antibiotic Method Susceptibility Staphylococcus epidermidis Gentamicin [facility] IIB <=0.5 mcg/ml: Susceptible Staphylococcus epidermidis Linezolid [facility] IIB 1 mcg/ml: Susceptible Staphylococcus epidermidis Nitrofurantoin [facility] IIB <=16 mcg/ml: Susceptible Staphylococcus epidermidis Oxacillin [facility] IIB <=0.25 mcg/ml: Susceptible Staphylococcus epidermidis Tetracycline [facility] IIB 2 mcg/ml: Susceptible Staphylococcus epidermidis Trimeth/Sulfamethoxazol e [facility] IIB 160 mcg/ml: Resistant Staphylococcus epidermidis Vancomycin [facility] IIB 2 mcg/ml: Susceptible us Van Flowers NEUROLOGY TECHNOLOGIST, BIOMEDICAL TECHNICIAN MICROBIOLOGY - GENERAL ORDERABLES Final Result [facility] [address] [place] [address], * (ABNORMAL) POCT UA AUTOMATED W/O MICRO (06/08/2024 3:44 PM PIECE WORKER) POC UA SPECIFIC GRAVITY 1.005 URINE PH 6.0 5.0 - 9.0 POC URINE LEUKOCYTES 500 /uL(A) Negative Annel/uL POC URINE NITRITE Positive(A) Negative POC URINE PROTEIN Negative Negative mg/dL POC URINE GLUCOSE Norm Negative, Norm mg/dL POC URINE KETONE Negative Negative mg/dL POC URINE UROBILINOGEN Norm Norm, 0.2 E.U./dL (mg/dL), 1 E.U./dL (mg/dL) POC URINE BILIRUBIN Negative Negative mg/dL POC URINE BLOOD INSTRUMENT Negative Negative Bridger/uL POC URINE COLOR Yellow POC URINE CLARITY Slightly Cloudy Urine 06/08/2024 3:44 PM PIECE WORKER us Van Flowers APRN, BIOMEDICAL TECHNICIAN POINT OF CARE TESTING (MANUAL) Final Result * YENNY,POST-VOID RES,US,NON-IMAGING (06/08/2024 3:30 PM PIECE WORKER) Narrative Van Flowers APRN, CNP - 06/08/2024 3:30 PM PIECE WORKER Van Flowers APRN, CNP 06/08/2024 4:09 PM POCT Bladder Scan collected per standing order of Miguel Angel Flowers on 06/08/2024 PVR= 0 ML us Van Flowers APRN, LEONARDA [place] - SURGERY Final Result from Last 3 Months Insurance MEDICAID [place] MEDICARE C [employer] [place] [id number] Care Teams Oscillograph Technician Relationship Specialty Start Date End Date Ivana Lora PA [address] [place] [address] PCP - General Primary Care 04/02/24 Van Flowers, NEUROLOGY TECHNOLOGIST, BIOMEDICAL TECHNICIAN [address] [place] [address] Nurse Practitioner Advanced Practice Nurse 04/02/24
== END 2024-07-21 15:55 | disposition home or self-care (01) ==
PROVIDERS: PCP Physician Assistant; Visit Provider Physician Assistant
DX: R05.3 Chronic cough (principal)
CPT/HCPCS: 71046

== ENCOUNTER 2025-01-21 07:50 | Outpatient (CLI) | payer MEDICARE, MEDICAID, SELFPAY ==
--- OUTSIDE RECORDS SUMMARY | 2011-01-14 19:00 | XMS_ITS | Continuity of Care Document ---
Author Organization [facility] Address [address] [place] [address] Phone Care Team Providers Care Scenic Designer Name Role Phone Jean Pablo MD Unavailable Unavailable Medications Medication Instructions Dosage Effective Dates (start - stop) Status Comments LOVASTATIN 40MG TABLET 0 DIRECTE - Active 0.5 daily pm f or cholesterol NAPROSYN 500MG TABLET 1 QAM - Active 1 daily with f ood for shoulder pain ISOSORBIDE MONONITRATE 30MG TA 1 QAM - Active RANITIDINE HCL 300MG TABS 1 QPM - Active ADULT LOW STRENGTH 81MG TABS 1 QD - Active LOVASTATIN 40MG TABS 0 DIRECTE - No Longer Active 0.5 daily pm for cholesterol NAPROSYN 500MG TABS 1 QAM - No Longer Active 1 daily with food for shoulder pain Advance Directives Directive Yes / No Effective Date File Name No Information Encounters Encounter Description Practice Location Reason(s) For Visit Diagnoses Date Provider Providers Copied on Encounter [facility], [address], [place], [place], [id number] , tel: [phone] [facility] No Information Sep-0 6-201 1 Samy Pena. [address] , [address], [place], [place], [id number] . tel: [phone] [facility], [address], [place], [place], [address] , tel: [phone] [facility] ROTATOR CUFF SYND NOS Sep-0 7-200 4 Samy Pena. [address] , [address], [place], [place], [address] . tel: [phone] [facility], [address], [place], [place], [address] , tel: [phone] [facility] ESOPHAGEAL REFLUXMIXED HYPERLIPIDEMIALONG- TERM USE MEDS NECSCRN MALIG NEOP-PROSTATECHEST PAIN NOSASCVD Sep-0 3-200 4 Pablo Jean. [address] [facility] [address], [place], [place], [id number] . tel: [phone] [facility], [address], [place], [place], [address] , tel: [phone] [facility] HISTORY OF TOBACCO USEND VAC STRPTCS PNEUMNI BIMPACTED CERUMENVACCINATION FOR TD-DT Sep-0 2-200 4 Pablo Jean. [address] [facility] [address], [place], [place], [id number] . tel: [phone] Family History Family Member Type Diagnosis Age At Onset No Information Immunizations Vaccine Date Status Comments 00440 - Pneumococcal_PPV23 administered S ource: Source Unspecified 45920 - TD administered Source: Source Unspecified Payers Payer name Insurance type Covered libertarian ID Authoriza tion(s) No Information Social History Type Description Quantity Date Captured Comments Sex Male Smoking Status No Information Chief Complaint And Reason For Visit No Information Reason For Referral Reason For Referral No Information History Of Present Illness Encounter Date Complaint History Of Prese nt Illness No Information Functional Status Date Functional Assessmen t No Information Instructions Date Instruction Additional Infor mation No Information Assessments Type Assessment Date No Information Patient Care Teams Name Effective Dates (start - stop) Status Members No Information
--- NOTE | ~2025-01-21 | NM_ITS ---
EXAMINATION: NM yoan stress w perfusion DATE: 01/21/2025 11:02 INDICATION: Encounter for preprocedural cardiovascular exam TECHNIQUE: Rest images were obtained following intravenous administration of 11 mCi Tc99m tetrofosmin (Myoview). The patient was infused intravenously with Lexiscan (Regadenoson). Then, 35.3 mCi Tc99m tetrofosmin (Myoview) was administered intravenously, and stress images were obtained. Data was recons tructed into short axis and horizontal and vertical long axis SPECT images. Gated SPECT images were also obtained. COMPARISON: None. FINDINGS: There is no definite reversible or fixed perfusion abnormality to suggest ischemia or infarction. There is normal left ventricular chamber size, wall motion and ejection fraction. Left ventricular ejection fraction measures 65%. IMPRESSION: 1. Normal myocardial perfusion at rest and during stress. 2. Left ventricular ejection fraction measuring 65%. Reviewed, dictated and finalized at location A.
--- OUTSIDE RECORDS SUMMARY | 2025-01-21 07:54 | XMS_ITS | Clinical Summary ---
Author Organization [facility] Address [address] [place] [address] Phone Care Team Providers Care Ultrasound Applications Specialist Name Role Phone Van Flowers APRN, VICE PRESIDENT NETWORK DEVELOPMENT Unavailable + [phone] Ivana Lora Primary Care Provider [phone] Allergies Active Allergy Reactions Criticality Noted Date [...] 1 TABLET BY MOUTH DAILY 90 Tablet 5 Active Immunizations Immunization Administration Dates Next Due Influenza, [...] Comments Blood Pressure 149/77 06/08/2024 3:38 PM CHEMICAL ENGINEERING INTERN Pulse 73 06/08/2024 3:38 PM CHEMICAL ENGINEERING INTERN Temperature - - Respiratory Rate 16 06/08/2024 3:38 PM CHEMICAL ENGINEERING INTERN Oxygen Saturation 98% 06/08/2024 3:38 PM CHEMICAL ENGINEERING INTERN Inhaled Oxygen Concentration - - Weight 72.6 kg (160 lb) 06/08/2024 3:38 PM CHEMICAL ENGINEERING INTERN Height 160 cm (5' 3) 06/08/2024 3:38 PM CHEMICAL ENGINEERING INTERN Body Mass Index 28.34 06/08/2024 3:38 PM CHEMICAL ENGINEERING INTERN Plan of Treatment Health Maintenance Due Date Last Done Comments Hepatitis C Virus (HCV) Screening 1940 TdaP Immunization 1940 Pneumococcal Immunization (5 0+ years) (1 of 1 - PCV) 02/26/1988 Zoster Immunization (1 of 2) 02/26/1988 Respiratory Syncytial Virus (RSV) Immunization (Adult) (1 - 1-dose 75+ series) 2013 Influenza Immunization (#1) 2025 03/09/2024 SARS-COV-2 Immunization ( - season) 2025 Hepatitis B Immunization Aged Out No longer eligible based on patient's age to complete this topic Human Papillomavirus (HPV) Immunization Aged Out No longer eligible b ased on patient's age to complete this topic Meningococcal Immunization (ACWY) Aged Out No longer eligible based on patient's age to complete this topic Rotavirus Immunization Aged Out No lo nger eligible based on patient's age to complete this topic Insurance MEDICAID [place] MEDIC[place] C [employer] [place] [id number] Care Teams Ultrasound Applications Specialist Relationship Specialty Start Date End Date Ivana Lora PA [address] [place] [address] PCP - General Primary Care 04/02/24 Van Flowers, MERCED, VICE PRESIDENT NETWORK DEVELOPMENT [address] [place] [address] Nurse Practitioner Advanced Practice Nurse 04/02/24
--- OUTSIDE RECORDS SUMMARY | 2025-01-21 07:54 | XMS_ITS | Encounter Summary ---
Author Organization [facility] Address [address] [place] [address] Phone Care Team Providers Care Separator Tender Name Role Phone Van Flowers APRN, CNP Unavailable [phone] Ivana Lora Primary Care Provider [phone] Reason for Visit * Reason Comments Medication Refill Encounter Details Date Type Department Care Team (Late st Contact Info) Description 04/06/2024 Refill [facility] [address] [place] [address] Van Flowers APRN, [employer] [address] [place] [address] Medication Refill Social History Tobacco Use Types [...] bladder documented in this encounter Care Teams Separator Tender Relationship Specialty Start Date End Date Ivana Lora PA [address] [facility] [place] [address] PCP - General Primary Care 04/02/24 Van Flowers APRN, [employer] TE[employer] [address] [place] [address] Nurse Practitioner Advanced Practice Nurse 04/02/24 documented as of this encounter
--- NOTE | 2025-01-21 08:00 | EST_ITS ---
Patient Info Name: Curt Canada Age: 84 years : 1940 Gender: Male Ht: 63 in Wt: 149 lbs BSA: 1.75 m2 HR: 64 bpm BP: 131 / 80 mmHg Exam Date: 01/21/2025 8:00 AM Patient Status: O Admit Date: 01/21/2025 Exam Type: CA stress yoan w NM A regadenoson stress test was performed. Staff Referring Physician: Lincoln Villanueva DO Attending Provider: Lincoln Villanueva DO Exercise Technologist: Sangeetha Blanc Exercise Physician: Lincoln Villanueva DO Summary 1. 1. Negative lexiscan stress test for ischemic ST changes by ECG criteria. 2. 2. Stable hemodynamics throughout the test. 3. 3. Nuclear scan to follow and will be reported separately. Please correlate with it. 4. 4. Patient informed of the above results. Protocol: Lexiscan Stress ECG Details Stage: REST Duration (min): 1 min : 13 sec HR (bpm): 63 SBP (mmHg): 131 DBP (mmHg): 80 Stage: REST Duration (min): 1 min : 29 sec HR (bpm): 64 SBP (mmHg): 131 DBP (mmHg): 80 Stage: REST Duration (min): 5 min : 47 sec HR (bpm): 62 SBP (mmHg): 131 DBP (mmHg): 80 Stage: STAGE 1 Duration (min): 1 min : 0 sec HR (bpm): 83 SBP (mmHg): 135 DBP (mmHg): 81 Stage: RECOVERY Duration (min): 1 min : 0 sec HR (bpm): 95 SBP (mmHg): 135 DBP (mmHg): 81 Stage: RECOVERY Duration (min): 2 min : 0 sec HR (bpm): 83 SBP (mmHg): 135 DBP (mmHg): 81 Stage: RECOVERY Duration (min): 3 min : 0 sec HR (bpm): 80 SBP (mmHg): 138 DBP (mmHg): 81 Stage: RECOVERY Duration (min): 3 min : 4 sec HR (bpm): 80 SBP (mmHg): 138 DBP (mmHg): 81 Rest HR: 62 bpm Peak HR: 96 bpm Rest Sys BP: 131 mmHg Peak Sys BP: 138 mmHg Max Pred HR: 134 bpm % Max Pred HR: 72 % Target HR: 114 bpm Max RPP: 13,248 bpm*mmHg Termination Reason: Completed protocol Cardiac Symptoms: Stomach discomfort Total Time: 1 min : 0 sec Rest Lilly BP: 80 mmHg Peak Lilly BP: 81 mmHg Total Dose: 0.4 mg Resting ECG Sinus rhythm. Stress ECG No ST changes. Arrhythmias None. Report Signatures
--- NOTE | 2025-01-21 08:00 | ECHO_ITS ---
Patient Info Name: Curt Canada Age: 84 years : 1940 Gender: Male Ht: 63 in Wt: 150 lbs BSA: 1.76 m2 HR: 61 bpm BP: 169 / 86 mmHg Technical Quality: Good Exam Date: 01/21/2025 10:06 AM Patient Status: O Admit Date: 01/21/2025 Exam Type: CA echo doppler color flow Complete two-dimensional, color flow and Doppler transthoracic echocardiogram is performed. Staff Referring Physician: Lincoln Villanueva DO Blender Snuff: Chichi Lujan Attending Provider: Lincoln Villanueva DO Summary 1. Complete two-dimensional, color flow and Doppler transthoracic echocardiogram is performed. 2. Left ventricular chamber dimension is normal. 3. Left ventricular systolic function is normal, estimated at 60-65. 4. There is mild concentric increased left ventricular wall thickness. 5. The left ventricular diastolic function is grade I diastolic dysfunction. 6. E/e' 10 is mildly elevated. 7. Left atrial chamber dimension is mildly enlarged. 8. 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 9. There is moderate aortic valve stenosis with a peak velocity of 301 cm/s, mean gradient of 21 mmHg, and aortic valve area of 1.0 cm2. 10. There is mild to moderate aortic valve regurgitation. 11. There is trace mitral valve regurgitation. 12. There is mild tricuspid valve regurgitation. 13. No pulmonary hypertension, estimated pulmonary arterial systolic pressure is 26 mmHg. Left Ventricle E/e' 10 is mildly elevated. Left ventricular chamber dimension is normal. Left ventricular systolic function is normal, estimated at 60-65. There is mild concentric increased left ventricular wall thickness. The left ventricular diastolic function is grade I diastolic dysfunction. Right Ventricle Right ventricular chamber dimension is normal. Right ventricular systolic function is normal and with normal TAPSE 2.0 cm. Left Atria Left atrial chamber dimension is mildly enlarged. Right Atria Right atrial chamber dimension is normal. Aortic Valve The aortic valve is trileaflet. 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 There is moderate aortic valve stenosis with a peak velocity of 301 cm/s, mean gradient of 21 mmHg, and aortic valve area of 1.0 cm2. There is mild to moderate aortic valve regurgitation. Pulmonic Valve There is no pulmonic regurgitation. Mitral Valve There is no mitral valve stenosis. There is trace mitral valve regurgitation. Tricuspid Valve There is mild tricuspid valve regurgitation. No pulmonary hypertension, estimated pulmonary arterial systolic pressure is 26 mmHg. Pericardium/Pleural There is no pericardial effusion. Inferior Vena Cava Normal inferior vena cava with >50% collapse upon inspiration consistent with normal right atrial pressure, 5 mmHg. Aorta The aortic root size at the sinus of Valsalva is normal. Left Ventricular Outflow Tract Name Value Normal LVOT 2D LVOT Diameter 2.1 cm LVOT Doppler LVOT Peak Velocity 79 cm/s LVOT Peak Gradient 2 mmHg LVOT Mean Gradient 2 mmHg LVOT VTI 19 cm LVOT VTI/AV VTI Ratio 0.3 LVOT Stroke Volume 67 ml LVOT CO 13.0 l/min LVOT CI 7.4 l/min/m2 Pulmonic Valve Name Value Normal PV Doppler PV Peak Velocity 101 cm/s PV Peak Gradient 4 mmHg Mitral Valve Name Value Normal MV Diastolic Function MV E Peak Velocity 62 cm/s MV A Peak Velocity 68 cm/s MV E/A 0.9 MV Decel Time (PW) 221 ms MV Annular TDI MV E/e' (Septal) 13.2 MV E/e' (Lateral) 8.3 MV E/e' (Average) 10.7 Tricuspid Valve Name Value Normal TV Regurgitation Doppler TR Peak Velocity 230 cm/s TR Peak Gradient 21 mmHg Estimated PAP/RSVP RA Pressure 5 mmHg <=5 PA Systolic Pressure 26 mmHg <36 RV Systolic Pressure 26 mmHg <36 TV Annular TDI TV Lateral Tricia s' Velocity 10.8 cm/s >=9.5 Aorta Name Value Normal Ascending Aorta Ao Root Diameter (MM) 2.7 cm Ao Root Diam Index (MM) 1.5 cm/m2 Aortic Valve Name Value Normal AV Doppler AV Peak Velocity 301 cm/s AV Peak Gradient 36 mmHg AV Mean Gradient 21 mmHg AV VTI 69 cm AV Area (Cont Eq VTI) 1.0 cm2 >=3.0 AV Area (Cont Eq Benja) 0.9 cm2 AV DI (Benja) 0.26 AV Regurgitation 2D LVOT Area 3.5 cm2 Ventricles Name Value Normal LV Dimensions 2D/MM IVS Diastolic Thickness (2D) 1.1 cm 0.6-1.0 LVID Diastole (2D) 4.4 cm 4.2-5.8 LVIW Diastolic Thickness (2D) 1.0 cm 0.6-1.0 LVID Systole (2D) 3.3 cm 2.5-4.0 LVOT Diameter 2.1 cm LV Mass (2D Cubed) 158.10 g 88.00-224.00 LV Mass Index (2D Cubed) 90 g/m2 49-115 Relative Wall Thickness (2D) 0.46 <=0.42 LV Fractional Shortening/Ejection Fraction 2D/MM LV Fractional Shortening (2D) 25 % 25-43 LV EF (2D Teichholz) 50 % LV Diastolic Volume (4C MOD) 78 ml LV EF (4C MOD) 64 % LV Diastolic Volume (2C MOD) 80 ml LV EF (2C MOD) 65 % LV Diastolic Volume (BP MOD) 81 ml 62-150 LV Diastolic Volume Index (BP MOD) 46 ml/m2 34-74 LV Systolic Volume (BP MOD) 30 ml 21-61 LV Systolic Volume Index (BP MOD) 17 ml/m2 11-31 LV EF (BP MOD) 63 % 52-72 LV Diastolic Length (4C) 7.6 cm LV Systolic Length (4C) 5.8 cm LV Stroke Volume (4C MOD) 50 ml Atria Name Value Normal LA Dimensions LA Dimension (MM) 3.6 cm 3.0-4.0 LA Volume (4C A-L) 33 ml LA Volume (BP A-L) 43 ml RA Dimensions RA Area (4C) 13.6 cm2 <=18.0 Report Signatures
== END 2025-01-21 07:51 | disposition home or self-care (01) ==
PROVIDERS: PCP Physician Assistant; Visit Provider Internal Medicine Cardiovascular Disease
DX: Z01.810 Encounter for preprocedural cardiovascular examination (principal); I50.31 Acute diastolic (congestive) heart failure; I35.8 Other nonrheumatic aortic valve disorders; I35.0 Nonrheumatic aortic (valve) stenosis; I35.1 Nonrheumatic aortic (valve) insufficiency; I07.1 Rheumatic tricuspid insufficiency
CPT/HCPCS: 78452; 93017; 93306; A9502; J2785